=== PATIENT | male | born 1950 | race Caucasian/White ===

== ENCOUNTER 2020-09-27 11:57 | Inpatient (IN) ==
[2020-09-27] MEDS ORDERED: ASPIRIN 325 MG TABLET PO STA (12:38)
[2020-09-27 12:54] LABS: Eosinophils % 0.6 % (0.00-10.9); Hematocrit 25.1 VOL% (42.0-52.0); Hemoglobin 7.2 GM/DL (14.0-18.0); Lymphocytes # 0.3 10*3/uL (1.4-4.0); Mean Corpuscular HGB Conc 28.7 GM/DL (32-36); Mean Platelet Volume 10.6 FL (9.6-12.0); Monocytes % 8.5 % (1.7-12.7); Neutrophils % 73.9 % (38.7-73.9); Platelet Count 57 T/CUMM (130-400); Red Cell Distribution Width 18.2 % (9.3-17.3); White Blood Count 1.8 T/CUMM (4-12)
[2020-09-27 13:09] LABS: Albumin 2.9 G/DL (3.4-5.0); Bilirubin,Total 0.9 MG/DL (0.2-1.0); Calcium 7.9 MG/DL (8.5-10.1); Osmolality,Calculated 283.4 MOS/KG (273-304); Potassium 4.2 MMOL/L (3.5-5.1); Total Protein 6.1 G/DL (6.4-8.2)
[2020-09-27 13:15] LABS: INR 1.1; PT Patient Result 12.4 SECS (9.8-11.9)
[2020-09-27] MEDS ORDERED: DEXTROSE 50% 25 GM/50 ML VIAL IV PRN (15:29)
[2020-09-27] MEDS ORDERED: ONDANSETRON 4 MG/2 ML VIAL IV PRN (15:29)
[2020-09-27] MEDS ORDERED: GLUCAGON 1 MG VIAL IM PRN (15:29)
[2020-09-27] MEDS ORDERED: SODIUM CHLORIDE 0.9% 1,000 ML IV PRN ×2 (16:12→16:13)
[2020-09-27] MEDS ORDERED: FUROSEMIDE 40 MG/4 ML VIAL IV ONE (16:12)
[2020-09-27] MEDS ORDERED: NITROGLYCERIN SL 0.4 MG TABLET SL PRN (16:17)
[2020-09-27] MEDS ORDERED: MORPHINE 4 MG/1 ML VIAL IV PRN (16:17)
[2020-09-27 16:42] LABS: % Iron Saturation 4.2 % (18-50)
[2020-09-27 16:46] LABS: Folate 13.38 NG/ML (5.38-24.0)
[2020-09-27] MEDS: CLOPIDOGREL 75 MG TABLET PO SCH (17:28)
[2020-09-27] MEDS: carvediloL 3.125 MG TABLET PO SCH (17:28)
[2020-09-27] MEDS: INSULIN LISPRO 100 UNIT/ML SUBCUT SCH ×2 (17:35→21:45)
[2020-09-27 19:26] LABS: Lymphocytes 20 % (20-55); Platelet Estimate Decreased; Segmented Neutrophils 75 % (50-85); Total Cells Counted 100
[2020-09-27] MEDS: ROSUVASTATIN 20 MG TABLET PO SCH (21:45)
[2020-09-27] MEDS: PANTOPRAZOLE 40 MG TABLET PO SCH (21:45)
[2020-09-27] MEDS: PARoxetine 10 MG TABLET PO PRN (22:17)
[2020-09-27] MEDS: ACETAMINOPHEN 325 MG TABLET PO PRN (23:10)
[2020-09-27 23:52] LABS: Bilirubin,Urine Negative (Negative); Blood, Urine Small mg/dL (Negative); Glucose,Urine (UA) Negative (Negative); Ketones,Urine Negative (Negative); Mucus,Urine Occasional /LPF (Occasional); Nitrite,Urine Positive (Negative); Protein,Urine 30 MG/DL; RBC,Urine 3 /HPF (0-4); Urine Appearance Slightly Hazy (Clear); Urine Color Yellow (Yellow); Urine Specific Gravity 1.032 (1.001-1.035); Urine Urobilinogen < 2.0 EU/DL (0.2-1.0)
[2020-09-28 06:12] LABS: Eosinophils % 0.7 % (0.00-10.9); Hematocrit 23.9 VOL% (42.0-52.0); Hemoglobin 7.1 GM/DL (14.0-18.0); Lymphocytes # 0.3 10*3/uL (1.4-4.0); Lymphocytes % 21.8 % (21.2-54.2); Mean Corpuscular HGB Conc 29.7 GM/DL (32-36); Mean Platelet Volume 10.3 FL (9.6-12.0); Monocytes % 8.5 % (1.7-12.7); Platelet Count 52 T/CUMM (130-400); Red Blood Count 2.95 MC/CUMM (3.8-5.5); Red Cell Distribution Width 18.1 % (9.3-17.3); White Blood Count 1.4 T/CUMM (4-12)
[2020-09-28 06:25] LABS: Calcium 8.1 MG/DL (8.5-10.1); Osmolality,Calculated 276.7 MOS/KG (273-304)
[2020-09-28 06:38] LABS: Risk Ratio 2.24; Thyroid Stimulating Hormone 0.855 uIU/ml (0.358-3.74); VLDL CHOLESTEROL 11.6 MG/DL
[2020-09-28 06:48] LABS: Hypochromasia 2+; Microcytosis 1+; Platelet Estimate Decreased
[2020-09-28] MEDS ORDERED: PANTOPRAZOLE 40 MG TABLET PO SCH ×2 (09:00)
[2020-09-28] MEDS: INSULIN LISPRO 100 UNIT/ML SUBCUT SCH ×4 (09:20→22:45)
[2020-09-28] MEDS: MEROPENEM 500 MG in SODIUM CHLORIDE 0.9% 100 ML IV SCH ×3 (09:21→22:46)
[2020-09-28] MEDS: carvediloL 3.125 MG TABLET PO SCH ×2 (09:25→16:13)
[2020-09-28] MEDS: ASPIRIN EC 81 MG TABLET PO SCH (09:25)
[2020-09-28] MEDS: CLOPIDOGREL 75 MG TABLET PO SCH (09:25)
[2020-09-28] MEDS: PANTOPRAZOLE 40 MG TABLET PO SCH ×2 (09:25→22:46)
[2020-09-28] MEDS ORDERED: HEPARIN 5,000 UNIT/1 ML VIAL ONE (10:06)
[2020-09-28] MEDS: ISOSORBIDE MONONITRATE 30 MG TABLET PO SCH (10:23)
[2020-09-28 12:43] LABS: Hematocrit 26.6 VOL% (42.0-52.0); Hemoglobin 7.9 GM/DL (14.0-18.0)
[2020-09-28] MEDS ORDERED: SODIUM CHLORIDE 0.9% 1,000 ML IV PRN (17:29)
[2020-09-28] MEDS: ROSUVASTATIN 20 MG TABLET PO SCH (22:45)
[2020-09-29] MEDS: MEROPENEM 500 MG in SODIUM CHLORIDE 0.9% 100 ML IV SCH ×4 (03:58→22:43)
[2020-09-29 05:40] LABS: Eosinophils % 0.6 % (0.00-10.9); Hematocrit 27.4 VOL% (42.0-52.0); Hemoglobin 8.4 GM/DL (14.0-18.0); Lymphocytes # 0.3 10*3/uL (1.4-4.0); Lymphocytes % 20.8 % (21.2-54.2); Mean Corpuscular HGB Conc 30.7 GM/DL (32-36); Mean Corpuscular Volume 79.7 FL (87-102); Mean Platelet Volume 9.9 FL (9.6-12.0); Monocytes % 5.7 % (1.7-12.7); Neutrophils % 72.9 % (38.7-73.9); Platelet Count 51 T/CUMM (130-400); Red Blood Count 3.44 MC/CUMM (3.8-5.5); Red Cell Distribution Width 17.6 % (9.3-17.3); White Blood Count 1.6 T/CUMM (4-12)
[2020-09-29 05:58] LABS: Calcium 7.7 MG/DL (8.5-10.1); Osmolality,Calculated 278.8 MOS/KG (273-304); Potassium 3.9 MMOL/L (3.5-5.1)
[2020-09-29 06:08] LABS: Hypochromasia 1+; Lymphocytes 20 % (20-55); Microcytosis 1+; Platelet Estimate Decreased; Segmented Neutrophils 76 % (50-85); Total Cells Counted 100
[2020-09-29] MEDS: FERROUS SULFATE 325 MG TABLET PO SCH (09:11)
[2020-09-29] MEDS: carvediloL 3.125 MG TABLET PO SCH ×2 (09:11→17:17)
[2020-09-29] MEDS: ASPIRIN EC 81 MG TABLET PO SCH (09:12)
[2020-09-29] MEDS: PANTOPRAZOLE 40 MG TABLET PO SCH ×2 (09:12→22:41)
[2020-09-29] MEDS: CLOPIDOGREL 75 MG TABLET PO SCH (09:12)
[2020-09-29] MEDS: INSULIN LISPRO 100 UNIT/ML SUBCUT SCH ×4 (09:12→22:43)
[2020-09-29] MEDS: ISOSORBIDE MONONITRATE 30 MG TABLET PO SCH (09:12)
[2020-09-29] MEDS: ACETAMINOPHEN 325 MG TABLET PO PRN (17:29)
[2020-09-29 19:06] LABS: Hepatitis B Core IgM Quant 0.08 Index; Hepatitis B Surface Ag Quant < 0.10 Index; Hepatitis B Surface Ag Result Non-Reactive (NonReactive); Hepatitis C Virus Ab Quant 0.17 Index; Hepatitis C Virus Ab Result Non-Reactive (NonReactive)
[2020-09-29] MEDS: ROSUVASTATIN 20 MG TABLET PO SCH (22:40)
[2020-09-30] MEDS: ACETAMINOPHEN 325 MG TABLET PO PRN ×2 (02:17→23:38)
[2020-09-30] MEDS: MEROPENEM 500 MG in SODIUM CHLORIDE 0.9% 100 ML IV SCH ×4 (03:41→21:10)
[2020-09-30 05:53] LABS: Eosinophils % 1.9 % (0.00-10.9); Hematocrit 26.6 VOL% (42.0-52.0); Lymphocytes # 0.3 10*3/uL (1.4-4.0); Lymphocytes % 23.1 % (21.2-54.2); Mean Corpuscular HGB Conc 30.1 GM/DL (32-36); Mean Corpuscular Volume 81.1 FL (87-102); Mean Platelet Volume 11.9 FL (9.6-12.0); Monocytes % 8.3 % (1.7-12.7); Neutrophils % 66.7 % (38.7-73.9); Platelet Count 49 T/CUMM (130-400); Red Blood Count 3.28 MC/CUMM (3.8-5.5); Red Cell Distribution Width 17.5 % (9.3-17.3); White Blood Count 1.1 T/CUMM (4-12)
[2020-09-30 06:05] LABS: Albumin 2.7 G/DL (3.4-5.0); Bilirubin,Total 1.2 MG/DL (0.2-1.0); Osmolality,Calculated 278.7 MOS/KG (273-304); Potassium 3.8 MMOL/L (3.5-5.1); Total Protein 5.8 G/DL (6.4-8.2)
[2020-09-30 06:25] LABS: Eosinophils 3 % (0-10); Hypochromasia 1+; Lymphocytes 17 % (20-55); Microcytosis 1+; Ovalocytes Slight; Platelet Estimate Decreased; Segmented Neutrophils 69 % (50-85); Total Cells Counted 100
[2020-09-30] MEDS: LACTATED RINGERS 1,000 ML IV SCH (07:32)
[2020-09-30] MEDS ORDERED: ETOMIDATE 20 MG/10 ML VIAL IV ONE (09:08)
[2020-09-30] MEDS ORDERED: LIDOCAINE 2% 5 ML VIAL ONE (09:23)
[2020-09-30] MEDS ORDERED: propofoL 200 MG/20 ML VIAL IV ONE (09:23)
[2020-09-30] MEDS: CLOPIDOGREL 75 MG TABLET PO SCH (10:03)
[2020-09-30] MEDS: ASPIRIN EC 81 MG TABLET PO SCH (10:03)
[2020-09-30] MEDS: ISOSORBIDE MONONITRATE 30 MG TABLET PO SCH (10:27)
[2020-09-30] MEDS: carvediloL 3.125 MG TABLET PO SCH ×2 (10:27→16:01)
[2020-09-30] MEDS: PANTOPRAZOLE 40 MG TABLET PO SCH ×2 (10:27→20:56)
[2020-09-30] MEDS: FERROUS SULFATE 325 MG TABLET PO SCH ×3 (10:27→20:57)
[2020-09-30] MEDS: INSULIN LISPRO 100 UNIT/ML SUBCUT SCH ×4 (10:42→20:59)
[2020-09-30] MEDS: ASCORBIC ACID 500 MG TABLET PO SCH ×2 (12:54→20:56)
[2020-09-30] MEDS: ROSUVASTATIN 20 MG TABLET PO SCH (20:56)
[2020-09-30] MEDS: PARoxetine 10 MG TABLET PO PRN (20:57)
[2020-10-01] MEDS: MEROPENEM 500 MG in SODIUM CHLORIDE 0.9% 100 ML IV SCH ×2 (03:40→10:17)
[2020-10-01 05:41] LABS: Eosinophils % 2.1 % (0.00-10.9); Hematocrit 28.4 VOL% (42.0-52.0); Hemoglobin 8.5 GM/DL (14.0-18.0); Immature Granulocytes % 1.1 %; Immature Granulocytes Absolute 0.01 #; Lymphocytes # 0.3 10*3/uL (1.4-4.0); Lymphocytes % 29.5 % (21.2-54.2); Mean Corpuscular HGB Conc 29.9 GM/DL (32-36); Mean Corpuscular Volume 81.6 FL (87-102); Mean Platelet Volume 10.9 FL (9.6-12.0); Monocytes % 12.6 % (1.7-12.7); Neutrophils % 54.7 % (38.7-73.9); Red Blood Count 3.48 MC/CUMM (3.8-5.5); Red Cell Distribution Width 17.6 % (9.3-17.3)
[2020-10-01 05:42] LABS: Platelet Count 50 T/CUMM (130-400)
[2020-10-01 06:05] LABS: Albumin 2.7 G/DL (3.4-5.0); Bilirubin,Total 0.7 MG/DL (0.2-1.0); Calcium 8.2 MG/DL (8.5-10.1); Osmolality,Calculated 277.8 MOS/KG (273-304); Potassium 3.9 MMOL/L (3.5-5.1); Total Protein 6.1 G/DL (6.4-8.2)
[2020-10-01 06:11] LABS: Anisocytosis 1+; Band Neutrophils 2 % (0-10); Eosinophils 3 % (0-10); Lymphocytes 30 % (20-55); Macrocytosis 1+; Platelet Estimate Decreased; Segmented Neutrophils 58 % (50-85); Total Cells Counted 100
[2020-10-01] MEDS: LACTATED RINGERS 1,000 ML IV SCH (08:04)
[2020-10-01] MEDS ORDERED: PROPRANOLOL 10 MG TABLET PO SCH (09:00)
[2020-10-01] MEDS ORDERED: COLESTIPOL 1 GM TABLET PO SCH (09:00)
[2020-10-01] MEDS: ISOSORBIDE MONONITRATE 30 MG TABLET PO SCH (09:10)
[2020-10-01] MEDS: FERROUS SULFATE 325 MG TABLET PO SCH (09:10)
[2020-10-01] MEDS: PANTOPRAZOLE 40 MG TABLET PO SCH (09:11)
[2020-10-01] MEDS: ASPIRIN EC 81 MG TABLET PO SCH (09:11)
[2020-10-01] MEDS: ASCORBIC ACID 500 MG TABLET PO SCH (09:11)
[2020-10-01] MEDS: CLOPIDOGREL 75 MG TABLET PO SCH (09:11)
[2020-10-01] MEDS: INSULIN LISPRO 100 UNIT/ML SUBCUT SCH ×2 (10:18→12:00)
[2020-10-01 11:27] VITALS: BP 121/68
== END 2020-10-01 15:05 | disposition home or self-care (01) | DRG 808 ==
LOC: N.ED 11:57 → N.EDINP 11:57 → N.TELES 16:32
PROVIDERS: ADMIT Internal Medicine; ATTEND Internal Medicine

== ENCOUNTER 2020-10-07 08:11 | Inpatient (IN) ==
[2020-10-07] MEDS ORDERED: ALBUTEROL/IPRATROPIUM 3 ML NEB RESP TX STA (08:41)
[2020-10-07] MEDS ORDERED: KETOROLAC 30 MG/1 ML VIAL IV STA (08:42)
[2020-10-07 08:59] LABS: Hematocrit 30.5 VOL% (42.0-52.0); Immature Granulocytes % 0.5 %; Immature Granulocytes Absolute 0.01 #; Lymphocytes # 0.4 10*3/uL (1.4-4.0); Lymphocytes % 18.7 % (21.2-54.2); Mean Corpuscular HGB Conc 29.5 GM/DL (32-36); Monocytes % 11.4 % (1.7-12.7); Neutrophils % 69.4 % (38.7-73.9); Red Blood Count 3.63 MC/CUMM (3.8-5.5); Red Cell Distribution Width 21.5 % (9.3-17.3); White Blood Count 1.9 T/CUMM (4-12)
[2020-10-07 09:01] LABS: INR 1.2
[2020-10-07 09:02] LABS: Albumin 2.7 G/DL (3.4-5.0); Bilirubin,Total 4.6 MG/DL (0.2-1.0); Calcium 8.1 MG/DL (8.5-10.1); Potassium 4.4 MMOL/L (3.5-5.1); Total Protein 6.1 G/DL (6.4-8.2)
[2020-10-07 09:05] LABS: Platelet Count 30 T/CUMM (130-400)
[2020-10-07 09:39] LABS: Band Neutrophils 1 % (0-10); Hypochromasia 1+; Lymphocytes 18 % (20-55); Microcytosis 1+; Platelet Estimate Decreased; Segmented Neutrophils 73 % (50-85); Total Cells Counted 100
[2020-10-07 10:39] LABS: Bilirubin,Urine Negative (Negative); Blood, Urine Large mg/dL (Negative); Glucose,Urine (UA) 50 mg/dL (Negative); Ketones,Urine Negative (Negative); Nitrite,Urine Negative (Negative); Protein,Urine 100 MG/DL; Urine Appearance CLEAR (Clear); Urine Color Amber (Yellow); Urine Specific Gravity 1.038 (1.001-1.035); Urine Urobilinogen < 2.0 EU/DL (0.2-1.0)
[2020-10-07] MEDS ORDERED: ACETAMINOPHEN 325 MG TABLET PO PRN (10:44)
[2020-10-07] MEDS ORDERED: GLUCAGON 1 MG VIAL IM PRN (10:44)
[2020-10-07] MEDS ORDERED: DEXTROSE 50% 25 GM/50 ML VIAL IV PRN ×2 (10:44)
[2020-10-07] MEDS: SODIUM CHLORIDE 0.9% 1,000 ML IV SCH ×2 (11:46→20:20)
[2020-10-07] MEDS: cefTRIAXone 1,000 MG in SODIUM CHLORIDE 0.9% 100 ML IV SCH (11:53)
[2020-10-07] MEDS: INSULIN REGULAR 100 UNIT/ML SUBCUT SCH ×3 (11:53→20:48)
[2020-10-07] MEDS: DEXAMETHASONE 4 MG/1 ML VIAL IV SCH (11:57)
[2020-10-07] MEDS ORDERED: LOPERAMIDE 2 MG CAPSULE PO PRN (12:39)
[2020-10-07] MEDS ORDERED: NITROGLYCERIN SL 0.4 MG TABLET SL PRN (12:39)
[2020-10-07] MEDS: AZITHROMYCIN INJ 500 MG in SODIUM CHLORIDE 0.9% 250 ML IV SCH (13:21)
[2020-10-07] MEDS: ALBUTEROL/IPRATROPIUM 3 ML NEB RESP TX SCH ×2 (14:15→20:15)
[2020-10-07] MEDS ORDERED: REMDESIVIR 200 MG in SODIUM CHLORIDE 0.9% 210 ML IV ONE (15:00)
[2020-10-07] MEDS ORDERED: SODIUM CHLORIDE 0.9% 1,000 ML IV ONE (15:33)
[2020-10-07] MEDS: PROPRANOLOL 10 MG TABLET PO SCH ×2 (17:05→20:49)
[2020-10-07] MEDS: FERROUS SULFATE 325 MG TABLET PO SCH (20:48)
[2020-10-07] MEDS: PARoxetine 10 MG TABLET PO SCH (20:48)
[2020-10-07] MEDS: FAMOTIDINE 20 MG TABLET PO SCH (20:48)
[2020-10-07] MEDS: ROSUVASTATIN 20 MG TABLET PO SCH (20:48)
[2020-10-07] MEDS: ASCORBIC ACID 500 MG TABLET PO SCH (20:48)
[2020-10-07] MEDS: GABAPENTIN 100 MG CAPSULE PO SCH (20:48)
[2020-10-08] MEDS: ALBUTEROL/IPRATROPIUM 3 ML NEB RESP TX SCH ×4 (02:43→18:22)
[2020-10-08 03:33] LABS: Hematocrit 25.9 VOL% (42.0-52.0); Hemoglobin 7.7 GM/DL (14.0-18.0); Lymphocytes # 0.2 10*3/uL (1.4-4.0); Lymphocytes % 21.3 % (21.2-54.2); Mean Corpuscular HGB Conc 29.7 GM/DL (32-36); Monocytes % 10.2 % (1.7-12.7); Neutrophils % 68.5 % (38.7-73.9); Red Blood Count 3.16 MC/CUMM (3.8-5.5); Red Cell Distribution Width 21.7 % (9.3-17.3); White Blood Count 1.1 T/CUMM (4-12)
[2020-10-08 03:53] LABS: Hypochromasia 1+; Platelet Estimate Decreased
[2020-10-08 03:54] LABS: Microcytosis 1+; Ovalocytes 2+
[2020-10-08 04:01] LABS: Alanine Aminotransferase 21 U/L (16-61); Alkaline Phosphatase 119 U/L (45-117); Aspartate Amino Transferase 59 U/L (0-37); Blood Urea Nitrogen 42 MG/DL (7-18); Calcium 7.8 MG/DL (8.5-10.1); Carbon Dioxide 24 MMOL/L (21-32); Estimated Glom Filtration Rate 83 ML/MIN; Glucose 179 MG/DL (74-106); HDL Cholesterol 10 MG/DL (40-60); Osmolality,Calculated 295.3 MOS/KG (273-304); Sodium 141 MMOL/L (136-145); Total Protein 5.5 G/DL (6.4-8.2); Triglycerides 124 MG/DL (2-150); VLDL CHOLESTEROL 24.8 MG/DL
[2020-10-08 04:09] LABS: Ferritin 567.9 ng/ml (26-388)
[2020-10-08] MEDS: SODIUM CHLORIDE 0.9% 1,000 ML IV SCH ×2 (05:12→16:14)
[2020-10-08] MEDS: ASCORBIC ACID 500 MG TABLET PO SCH ×2 (08:37→20:18)
[2020-10-08] MEDS: FAMOTIDINE 20 MG TABLET PO SCH ×2 (08:38→20:19)
[2020-10-08] MEDS: ZINC SULFATE 220 MG CAPSULE PO SCH (08:38)
[2020-10-08] MEDS: DEXAMETHASONE 4 MG/1 ML VIAL IV SCH (08:38)
[2020-10-08] MEDS: ISOSORBIDE MONONITRATE 30 MG TABLET PO SCH (08:38)
[2020-10-08] MEDS: GABAPENTIN 100 MG CAPSULE PO SCH ×2 (08:38→20:19)
[2020-10-08] MEDS: CHOLECALCIFEROL 1,000 UNIT TABLET PO SCH (08:38)
[2020-10-08] MEDS: FERROUS SULFATE 325 MG TABLET PO SCH ×2 (08:38→20:18)
[2020-10-08] MEDS: INSULIN REGULAR 100 UNIT/ML SUBCUT SCH ×4 (08:39→20:22)
[2020-10-08] MEDS ORDERED: PANTOPRAZOLE 40 MG TABLET PO SCH (09:00)
[2020-10-08] MEDS ORDERED: DEXAMETHASONE INJ 10 MG in SODIUM CHLORIDE 0.9% 50 ML IV SCH (09:00)
[2020-10-08] MEDS: PROPRANOLOL 10 MG TABLET PO SCH (10:07)
[2020-10-08] MEDS: REMDESIVIR 100 MG in SODIUM CHLORIDE 0.9% 100 ML IV SCH (10:07)
[2020-10-08] MEDS: ASPIRIN CHEW 81 MG TABLET PO SCH (10:08)
[2020-10-08] MEDS: CLOPIDOGREL 75 MG TABLET PO SCH (10:08)
[2020-10-08] MEDS ORDERED: SODIUM CHLORIDE 0.9% 1,000 ML IV PRN ×2 (12:12→15:15)
[2020-10-08] MEDS: cefTRIAXone 1,000 MG in SODIUM CHLORIDE 0.9% 100 ML IV SCH (12:31)
[2020-10-08] MEDS: AZITHROMYCIN INJ 500 MG in SODIUM CHLORIDE 0.9% 250 ML IV SCH (13:15)
[2020-10-08] MEDS: ROSUVASTATIN 20 MG TABLET PO SCH (20:18)
[2020-10-08] MEDS: PARoxetine 10 MG TABLET PO SCH (20:19)
[2020-10-08] MEDS ORDERED: ZALEPLON 5 MG CAPSULE PO PRN (21:15)
[2020-10-09] MEDS: SODIUM CHLORIDE 0.9% 1,000 ML IV SCH ×4 (00:37→19:51)
[2020-10-09] MEDS: ALBUTEROL/IPRATROPIUM 3 ML NEB RESP TX SCH ×4 (06:05→20:00)
[2020-10-09 06:26] LABS: Hemoglobin 6.9 GM/DL (14.0-18.0); Immature Granulocytes Absolute 0.01 #; Lymphocytes # 0.2 10*3/uL (1.4-4.0); Lymphocytes % 18.6 % (21.2-54.2); Mean Corpuscular HGB Conc 31.4 GM/DL (32-36); Mean Corpuscular Volume 81.2 FL (87-102); Monocytes % 4.1 % (1.7-12.7); Neutrophils % 76.3 % (38.7-73.9); Red Blood Count 2.71 MC/CUMM (3.8-5.5); Red Cell Distribution Width 22.1 % (9.3-17.3)
[2020-10-09 06:30] LABS: Platelet Count 29 T/CUMM (130-400)
[2020-10-09 06:39] LABS: Albumin 2.1 G/DL (3.4-5.0); Bilirubin,Total 1.6 MG/DL (0.2-1.0); Calcium 7.7 MG/DL (8.5-10.1); Osmolality,Calculated 301.3 MOS/KG (273-304); Potassium 4.3 MMOL/L (3.5-5.1); Total Protein 5.2 G/DL (6.4-8.2)
[2020-10-09 06:40] LABS: Ferritin 378.3 ng/ml (26-388)
[2020-10-09 07:04] LABS: Anisocytosis 1+; Band Neutrophils 3 % (0-10); Hypochromasia 1+; Lymphocytes 20 % (20-55); Microcytosis 1+; Segmented Neutrophils 72 % (50-85); Total Cells Counted 100
[2020-10-09 07:05] LABS: Ovalocytes Slight; Platelet Estimate Decreased
[2020-10-09] MEDS: DEXAMETHASONE 4 MG/1 ML VIAL IV SCH (08:45)
[2020-10-09] MEDS: INSULIN REGULAR 100 UNIT/ML SUBCUT SCH ×4 (08:48→21:04)
[2020-10-09] MEDS: FERROUS SULFATE 325 MG TABLET PO SCH ×2 (08:49→20:47)
[2020-10-09] MEDS: ASCORBIC ACID 500 MG TABLET PO SCH ×2 (08:50→20:47)
[2020-10-09] MEDS: GABAPENTIN 100 MG CAPSULE PO SCH ×2 (08:50→20:48)
[2020-10-09] MEDS: FAMOTIDINE 20 MG TABLET PO SCH ×2 (08:50→20:48)
[2020-10-09] MEDS: ISOSORBIDE MONONITRATE 30 MG TABLET PO SCH (08:50)
[2020-10-09] MEDS: CHOLECALCIFEROL 1,000 UNIT TABLET PO SCH (08:51)
[2020-10-09] MEDS: ZINC SULFATE 220 MG CAPSULE PO SCH (08:51)
[2020-10-09 09:52] LABS: Platelet Count 27 T/CUMM (130-400)
[2020-10-09] MEDS: REMDESIVIR 100 MG in SODIUM CHLORIDE 0.9% 100 ML IV SCH (09:59)
[2020-10-09] MEDS: CLOPIDOGREL 75 MG TABLET PO SCH (10:32)
[2020-10-09] MEDS: ASPIRIN CHEW 81 MG TABLET PO SCH (10:32)
[2020-10-09] MEDS: cefTRIAXone 1,000 MG in SODIUM CHLORIDE 0.9% 100 ML IV SCH (11:11)
[2020-10-09] MEDS: AZITHROMYCIN INJ 500 MG in SODIUM CHLORIDE 0.9% 250 ML IV SCH (11:37)
[2020-10-09] MEDS: POLYETHYLENE GLYCOL POWDER 17 GM PACK PO SCH ×2 (13:25→20:51)
[2020-10-09] MEDS: PROPRANOLOL 10 MG TABLET PO SCH ×2 (16:00→20:50)
[2020-10-09] MEDS: ROSUVASTATIN 20 MG TABLET PO SCH (20:47)
[2020-10-09] MEDS: PARoxetine 10 MG TABLET PO SCH (20:49)
[2020-10-10] MEDS: ALBUTEROL/IPRATROPIUM 3 ML NEB RESP TX SCH ×4 (00:33→19:20)
[2020-10-10] MEDS: SODIUM CHLORIDE 0.9% 1,000 ML IV SCH ×5 (03:26→16:12)
[2020-10-10 06:05] LABS: Hematocrit 21.9 VOL% (42.0-52.0); Hemoglobin 6.6 GM/DL (14.0-18.0); Immature Granulocytes Absolute 0.01 #; Lymphocytes # 0.1 10*3/uL (1.4-4.0); Lymphocytes % 14.6 % (21.2-54.2); Mean Corpuscular HGB Conc 30.1 GM/DL (32-36); Monocytes % 6.3 % (1.7-12.7); Neutrophils % 78.1 % (38.7-73.9); Platelet Count 40 T/CUMM (130-400); Red Blood Count 2.67 MC/CUMM (3.8-5.5); Red Cell Distribution Width 22.5 % (9.3-17.3)
[2020-10-10 06:24] LABS: Albumin 2.2 G/DL (3.4-5.0); Bilirubin,Total 0.8 MG/DL (0.2-1.0); Calcium 7.9 MG/DL (8.5-10.1); Potassium 4.3 MMOL/L (3.5-5.1); Total Protein 5.3 G/DL (6.4-8.2)
[2020-10-10 06:26] LABS: Ferritin 313.1 ng/ml (26-388)
[2020-10-10 07:49] LABS: Acanthocytes Few; Anisocytosis 2+; Band Neutrophils 12 % (0-10); Lymphocytes 12 % (20-55); Ovalocytes Few; Platelet Estimate Decreased; Poikilocytosis Slight; Segmented Neutrophils 68 % (50-85); Total Cells Counted 100
[2020-10-10 07:50] LABS: Hypochromasia Slight
[2020-10-10] MEDS: INSULIN REGULAR 100 UNIT/ML SUBCUT SCH ×4 (08:19→21:01)
[2020-10-10] MEDS: ISOSORBIDE MONONITRATE 30 MG TABLET PO SCH (08:20)
[2020-10-10] MEDS: ASPIRIN CHEW 81 MG TABLET PO SCH (08:20)
[2020-10-10] MEDS: FERROUS SULFATE 325 MG TABLET PO SCH ×2 (08:20→21:00)
[2020-10-10] MEDS: DEXAMETHASONE 4 MG/1 ML VIAL IV SCH (08:20)
[2020-10-10] MEDS: CLOPIDOGREL 75 MG TABLET PO SCH (08:21)
[2020-10-10] MEDS: FAMOTIDINE 20 MG TABLET PO SCH ×2 (08:21→21:00)
[2020-10-10] MEDS: PROPRANOLOL 10 MG TABLET PO SCH ×3 (08:21→21:01)
[2020-10-10] MEDS: GABAPENTIN 100 MG CAPSULE PO SCH ×2 (08:21→21:00)
[2020-10-10] MEDS: ASCORBIC ACID 500 MG TABLET PO SCH ×2 (08:22→21:05)
[2020-10-10] MEDS: CHOLECALCIFEROL 1,000 UNIT TABLET PO SCH (08:22)
[2020-10-10] MEDS: ZINC SULFATE 220 MG CAPSULE PO SCH (08:22)
[2020-10-10] MEDS: POLYETHYLENE GLYCOL POWDER 17 GM PACK PO SCH ×2 (08:57→21:00)
[2020-10-10] MEDS: REMDESIVIR 100 MG in SODIUM CHLORIDE 0.9% 100 ML IV SCH (09:40)
[2020-10-10] MEDS: cefTRIAXone 1,000 MG in SODIUM CHLORIDE 0.9% 100 ML IV SCH (11:08)
[2020-10-10] MEDS: AZITHROMYCIN INJ 500 MG in SODIUM CHLORIDE 0.9% 250 ML IV SCH (11:39)
[2020-10-10] MEDS: PARoxetine 10 MG TABLET PO SCH (21:00)
[2020-10-10] MEDS: ROSUVASTATIN 20 MG TABLET PO SCH (21:00)
[2020-10-11] MEDS: SODIUM CHLORIDE 0.9% 1,000 ML IV SCH ×4 (00:04→18:12)
[2020-10-11] MEDS: ALBUTEROL/IPRATROPIUM 3 ML NEB RESP TX SCH ×4 (01:10→19:00)
[2020-10-11 04:53] LABS: Hematocrit 22.3 VOL% (42.0-52.0); Hemoglobin 6.7 GM/DL (14.0-18.0); Immature Granulocytes % 1.1 %; Immature Granulocytes Absolute 0.01 #; Lymphocytes # 0.2 10*3/uL (1.4-4.0); Lymphocytes % 21.1 % (21.2-54.2); Mean Corpuscular Volume 82.9 FL (87-102); Monocytes % 7.4 % (1.7-12.7); Neutrophils % 70.4 % (38.7-73.9); Platelet Count 44 T/CUMM (130-400); Red Blood Count 2.69 MC/CUMM (3.8-5.5); Red Cell Distribution Width 23.1 % (9.3-17.3)
[2020-10-11 05:30] LABS: Albumin 2.1 G/DL (3.4-5.0); Bilirubin,Total 0.6 MG/DL (0.2-1.0); Calcium 7.7 MG/DL (8.5-10.1); Potassium 4.2 MMOL/L (3.5-5.1); Total Protein 5.1 G/DL (6.4-8.2)
[2020-10-11 05:32] LABS: Ferritin 253.4 ng/ml (26-388)
[2020-10-11 09:07] LABS: Band Neutrophils 4 % (0-10); Lymphocytes 16 % (20-55); Platelet Estimate Decreased; Segmented Neutrophils 76 % (50-85); Total Cells Counted 100
[2020-10-11 09:08] LABS: Anisocytosis 1+; Burr Cells Few; Macrocytosis Slight; Ovalocytes Few; Tear Drop Cells Few
[2020-10-11] MEDS: ZINC SULFATE 220 MG CAPSULE PO SCH (09:36)
[2020-10-11] MEDS: GABAPENTIN 100 MG CAPSULE PO SCH ×2 (09:36→20:41)
[2020-10-11] MEDS: FAMOTIDINE 20 MG TABLET PO SCH ×2 (09:37→20:41)
[2020-10-11] MEDS: ASPIRIN CHEW 81 MG TABLET PO SCH (09:37)
[2020-10-11] MEDS: PROPRANOLOL 10 MG TABLET PO SCH ×3 (09:37→21:27)
[2020-10-11] MEDS: CHOLECALCIFEROL 1,000 UNIT TABLET PO SCH (09:37)
[2020-10-11] MEDS: ISOSORBIDE MONONITRATE 30 MG TABLET PO SCH (09:37)
[2020-10-11] MEDS: FERROUS SULFATE 325 MG TABLET PO SCH ×2 (09:37→20:42)
[2020-10-11] MEDS: ASCORBIC ACID 500 MG TABLET PO SCH ×2 (09:37→20:41)
[2020-10-11] MEDS: POLYETHYLENE GLYCOL POWDER 17 GM PACK PO SCH ×2 (09:40→21:23)
[2020-10-11] MEDS: DEXAMETHASONE 4 MG/1 ML VIAL IV SCH (09:40)
[2020-10-11] MEDS: REMDESIVIR 100 MG in SODIUM CHLORIDE 0.9% 100 ML IV SCH (09:42)
[2020-10-11] MEDS: CLOPIDOGREL 75 MG TABLET PO SCH (09:47)
[2020-10-11] MEDS: INSULIN REGULAR 100 UNIT/ML SUBCUT SCH ×4 (11:21→20:42)
[2020-10-11] MEDS: cefTRIAXone 1,000 MG in SODIUM CHLORIDE 0.9% 100 ML IV SCH (11:21)
[2020-10-11] MEDS: AZITHROMYCIN INJ 500 MG in SODIUM CHLORIDE 0.9% 250 ML IV SCH (11:45)
[2020-10-11 19:06] LABS: Specimen Source THROAT
[2020-10-11] MEDS: PARoxetine 10 MG TABLET PO SCH (20:41)
[2020-10-11] MEDS: ROSUVASTATIN 20 MG TABLET PO SCH (20:41)
[2020-10-12] MEDS: ALBUTEROL/IPRATROPIUM 3 ML NEB RESP TX SCH (01:00)
[2020-10-12] MEDS: SODIUM CHLORIDE 0.9% 1,000 ML IV SCH ×4 (03:26→21:52)
[2020-10-12 05:23] LABS: Hematocrit 25.4 VOL% (42.0-52.0); Hemoglobin 7.5 GM/DL (14.0-18.0); Immature Granulocytes % 0.9 %; Immature Granulocytes Absolute 0.01 #; Lymphocytes # 0.2 10*3/uL (1.4-4.0); Lymphocytes % 20.9 % (21.2-54.2); Mean Corpuscular HGB Conc 29.5 GM/DL (32-36); Mean Corpuscular Volume 84.7 FL (87-102); Monocytes % 11.3 % (1.7-12.7); Neutrophils % 66.9 % (38.7-73.9); Platelet Count 56 T/CUMM (130-400); White Blood Count 1.2 T/CUMM (4-12)
[2020-10-12 05:40] LABS: Hypochromasia 2+; Microcytosis Slight; Platelet Estimate Decreased
[2020-10-12 05:47] LABS: Calcium 7.5 MG/DL (8.5-10.1); Osmolality,Calculated 295.8 MOS/KG (273-304); Potassium 4.3 MMOL/L (3.5-5.1)
[2020-10-12 05:58] LABS: Ferritin 227.9 ng/ml (26-388)
[2020-10-12] MEDS ORDERED: PRAMOXINE/HYDROCORTISONE RECTAL FOAM 10 GM CAN TOP PRN (06:32)
[2020-10-12] MEDS: ALBUTEROL INHALER 18 GM INH SCH ×3 (07:57→18:00)
[2020-10-12] MEDS: ASPIRIN CHEW 81 MG TABLET PO SCH (08:24)
[2020-10-12] MEDS: FERROUS SULFATE 325 MG TABLET PO SCH ×2 (08:24→21:41)
[2020-10-12] MEDS: FAMOTIDINE 20 MG TABLET PO SCH ×2 (08:24→21:39)
[2020-10-12] MEDS: CHOLECALCIFEROL 1,000 UNIT TABLET PO SCH (08:24)
[2020-10-12] MEDS: ISOSORBIDE MONONITRATE 30 MG TABLET PO SCH (08:24)
[2020-10-12] MEDS: GABAPENTIN 100 MG CAPSULE PO SCH ×2 (08:24→21:40)
[2020-10-12] MEDS: ASCORBIC ACID 500 MG TABLET PO SCH ×2 (08:24→21:40)
[2020-10-12] MEDS: CLOPIDOGREL 75 MG TABLET PO SCH (08:24)
[2020-10-12] MEDS: ZINC SULFATE 220 MG CAPSULE PO SCH (08:25)
[2020-10-12] MEDS: INSULIN REGULAR 100 UNIT/ML SUBCUT SCH ×4 (08:25→21:42)
[2020-10-12] MEDS: POLYETHYLENE GLYCOL POWDER 17 GM PACK PO SCH ×2 (08:25→21:51)
[2020-10-12] MEDS: DEXAMETHASONE 4 MG/1 ML VIAL IV SCH (08:25)
[2020-10-12] MEDS ORDERED: PROPRANOLOL 10 MG TABLET PO SCH (09:00)
[2020-10-12] MEDS: AZITHROMYCIN INJ 500 MG in SODIUM CHLORIDE 0.9% 250 ML IV SCH (10:47)
[2020-10-12] MEDS: cefTRIAXone 1,000 MG in SODIUM CHLORIDE 0.9% 100 ML IV SCH (11:27)
[2020-10-12] MEDS: PARoxetine 10 MG TABLET PO SCH (21:39)
[2020-10-12] MEDS: ROSUVASTATIN 20 MG TABLET PO SCH (21:41)
[2020-10-12] MEDS: carvediloL 3.125 MG TABLET PO SCH (21:42)
[2020-10-13] MEDS: ONDANSETRON 4 MG/2 ML VIAL IV PRN ×2 (00:57→13:58)
[2020-10-13] MEDS: ALBUTEROL INHALER 18 GM INH SCH ×4 (01:07→20:40)
[2020-10-13] MEDS: SODIUM CHLORIDE 0.9% 1,000 ML IV SCH ×3 (01:10→20:41)
[2020-10-13 05:52] LABS: Eosinophils % 0.8 % (0.00-10.9); Hematocrit 26.4 VOL% (42.0-52.0); Hemoglobin 7.9 GM/DL (14.0-18.0); Immature Granulocytes % 1.1 %; Immature Granulocytes Absolute 0.03 #; Lymphocytes # 0.3 10*3/uL (1.4-4.0); Lymphocytes % 11.9 % (21.2-54.2); Mean Corpuscular HGB Conc 29.9 GM/DL (32-36); Mean Corpuscular Volume 84.6 FL (87-102); Mean Platelet Volume 11.2 FL (9.6-12.0); Monocytes % 8.8 % (1.7-12.7); Neutrophils % 77.4 % (38.7-73.9); Platelet Count 74 T/CUMM (130-400); Red Blood Count 3.12 MC/CUMM (3.8-5.5); White Blood Count 2.6 T/CUMM (4-12)
[2020-10-13 06:09] LABS: Calcium 7.7 MG/DL (8.5-10.1); Potassium 4.2 MMOL/L (3.5-5.1)
[2020-10-13 06:12] LABS: Ferritin 174.2 ng/ml (26-388)
[2020-10-13 06:14] LABS: Hypochromasia 1+; Microcytosis 1+; Platelet Estimate Decreased
[2020-10-13] MEDS: INSULIN REGULAR 100 UNIT/ML SUBCUT SCH ×4 (08:45→23:55)
[2020-10-13] MEDS: ASCORBIC ACID 500 MG TABLET PO SCH ×2 (08:46→20:40)
[2020-10-13] MEDS: carvediloL 3.125 MG TABLET PO SCH ×2 (08:46→20:40)
[2020-10-13] MEDS: FAMOTIDINE 20 MG TABLET PO SCH (08:46)
[2020-10-13] MEDS: FERROUS SULFATE 325 MG TABLET PO SCH ×2 (08:46→20:40)
[2020-10-13] MEDS: DEXAMETHASONE 4 MG/1 ML VIAL IV SCH (08:46)
[2020-10-13] MEDS: ZINC SULFATE 220 MG CAPSULE PO SCH (08:46)
[2020-10-13] MEDS: GABAPENTIN 100 MG CAPSULE PO SCH ×2 (08:46→20:40)
[2020-10-13] MEDS: ISOSORBIDE MONONITRATE 30 MG TABLET PO SCH (08:46)
[2020-10-13] MEDS: ASPIRIN CHEW 81 MG TABLET PO SCH (08:46)
[2020-10-13] MEDS: CLOPIDOGREL 75 MG TABLET PO SCH (08:46)
[2020-10-13] MEDS: CHOLECALCIFEROL 1,000 UNIT TABLET PO SCH (08:46)
[2020-10-13] MEDS: POLYETHYLENE GLYCOL POWDER 17 GM PACK PO SCH ×2 (10:11→20:40)
[2020-10-13] MEDS: cefTRIAXone 1,000 MG in SODIUM CHLORIDE 0.9% 100 ML IV SCH (12:46)
[2020-10-13 13:55] LABS: Hematocrit 26.8 VOL% (42.0-52.0)
[2020-10-13] MEDS: OCTREOTIDE 500 MCG in SODIUM CHLORIDE 0.9% 100 ML IV SCH ×2 (13:58→23:16)
[2020-10-13] MEDS ORDERED: VECURONIUM 10 MG VIAL IV ONE (17:16)
[2020-10-13] MEDS ORDERED: ETOMIDATE 40 MG/20 ML VIAL IV ONE (17:16)
[2020-10-13] MEDS ORDERED: SUCCINYLCHOLINE 200 MG/10 ML VIAL ONE (17:16)
[2020-10-13] MEDS ORDERED: ePHEDrine 50 MG/ML VIAL ONE (17:17)
[2020-10-13] MEDS ORDERED: PHENYLEPHRINE 1 MG/10 ML SYRINGE IV ONE (17:17)
[2020-10-13] MEDS ORDERED: PHENYLEPHRINE DRIP 40 MG/250 ML PREMIX IV ONE (17:37)
[2020-10-13 17:46] LABS: Hematocrit 22.4 VOL% (42.0-52.0); Hemoglobin 6.6 GM/DL (14.0-18.0)
[2020-10-13] MEDS ORDERED: MIDAZOLAM 2 MG/2 ML VIAL ONE (18:09)
[2020-10-13] MEDS ORDERED: MIDAZOLAM 2 MG/2 ML VIAL IV ONE (18:22)
[2020-10-13] MEDS ORDERED: PHENYLEPHRINE DRIP 40 MG/250 ML PREMIX IV PRN (18:23)
[2020-10-13] MEDS: ROSUVASTATIN 20 MG TABLET PO SCH (20:40)
[2020-10-13] MEDS: PARoxetine 10 MG TABLET PO SCH (20:40)
[2020-10-13] MEDS: FAMOTIDINE 20 MG/2 ML VIAL IV SCH (22:21)
[2020-10-14] MEDS: ALBUTEROL INHALER 18 GM INH SCH ×4 (00:48→20:05)
[2020-10-14 01:12] LABS: Hematocrit 23.2 VOL% (42.0-52.0); Hemoglobin 6.8 GM/DL (14.0-18.0)
[2020-10-14] MEDS: SODIUM CHLORIDE 0.9% 1,000 ML IV SCH ×5 (02:16→21:55)
[2020-10-14 03:54] LABS: ABG Base Excess -6.4 MMOL/L (-2.5-2.5); ABG HCO3 17.2 MMOL/L (20-26); ABG Oxygen Saturation 99.4 % (95-100); ABG PCO2 26.3 MM HG (35-48); ABG PH 7.433 (7.35-7.45); ABG PO2 447.2 MM HG (80-95); Allen Test Positive; Pt O2 Delivery Device Ventilator
[2020-10-14] MEDS ORDERED: METOPROLOL TARTRATE 5 MG/5 ML VIAL IV ONE ×3 (05:32→18:08)
[2020-10-14 06:03] LABS: Basophils % 0.1 % (0.0-0.8); Eosinophils % 0.1 % (0.00-10.9); Hematocrit 22.3 VOL% (42.0-52.0); Hemoglobin 6.5 GM/DL (14.0-18.0); Immature Granulocytes % 2.2 %; Immature Granulocytes Absolute 0.31 #; Lymphocytes # 1.6 10*3/uL (1.4-4.0); Lymphocytes % 11.6 % (21.2-54.2); Mean Corpuscular HGB Conc 29.1 GM/DL (32-36); Mean Corpuscular Volume 87.5 FL (87-102); Mean Platelet Volume 10.8 FL (9.6-12.0); Monocytes % 10.5 % (1.7-12.7); NRBC # 0.11 10*3/uL; Neutrophils % 75.5 % (38.7-73.9); Platelet Count 225 T/CUMM (130-400); Red Blood Count 2.55 MC/CUMM (3.8-5.5); Red Cell Distribution Width 27.6 % (9.3-17.3); White Blood Count 13.8 T/CUMM (4-12)
[2020-10-14 06:18] LABS: Calcium 7.3 MG/DL (8.5-10.1); Osmolality,Calculated 306.7 MOS/KG (273-304); Potassium 4.5 MMOL/L (3.5-5.1)
[2020-10-14] MEDS: INSULIN REGULAR 100 UNIT/ML SUBCUT SCH ×3 (09:26→17:32)
[2020-10-14] MEDS: OCTREOTIDE 500 MCG in SODIUM CHLORIDE 0.9% 100 ML IV SCH ×3 (09:26→19:26)
[2020-10-14] MEDS: FAMOTIDINE 20 MG/2 ML VIAL IV SCH ×2 (09:27→20:53)
[2020-10-14] MEDS: ISOSORBIDE MONONITRATE 30 MG TABLET PO SCH (09:27)
[2020-10-14] MEDS: POLYETHYLENE GLYCOL POWDER 17 GM PACK PO SCH ×2 (09:27→21:08)
[2020-10-14] MEDS: GABAPENTIN 100 MG CAPSULE PO SCH ×2 (09:27→21:08)
[2020-10-14] MEDS: ASPIRIN CHEW 81 MG TABLET PO SCH (09:28)
[2020-10-14] MEDS: carvediloL 3.125 MG TABLET PO SCH (09:28)
[2020-10-14] MEDS: FERROUS SULFATE 325 MG TABLET PO SCH ×2 (09:28→21:08)
[2020-10-14] MEDS: DEXAMETHASONE 4 MG/1 ML VIAL IV SCH (09:28)
[2020-10-14] MEDS: CHOLECALCIFEROL 1,000 UNIT TABLET PO SCH (09:29)
[2020-10-14] MEDS: ZINC SULFATE 220 MG CAPSULE PO SCH (09:29)
[2020-10-14] MEDS: ASCORBIC ACID 500 MG TABLET PO SCH ×2 (09:29→21:09)
[2020-10-14 09:42] LABS: INR 1.7; PT Patient Result 18.3 SECS (10.5-12.0)
[2020-10-14] MEDS: cefTRIAXone 1,000 MG in SODIUM CHLORIDE 0.9% 100 ML IV SCH (10:16)
[2020-10-14] MEDS: PHENYLEPHRINE DRIP 40 MG/250 ML PREMIX IV PRN (11:13)
[2020-10-14 13:56] LABS: Alpha-1-Antitrypsin, Serum 185 mg/dL (100 - 190)
[2020-10-14] MEDS ORDERED: DIGOXIN 0.5 MG/2 ML AMP IV ONE ×2 (15:49→16:57)
[2020-10-14] MEDS ORDERED: DIGOXIN 0.5 MG/2 ML AMP ONE (15:53)
[2020-10-14] MEDS: ROSUVASTATIN 20 MG TABLET PO SCH (21:08)
[2020-10-14] MEDS: PARoxetine 10 MG TABLET PO SCH (21:09)
[2020-10-15] MEDS: INSULIN REGULAR 100 UNIT/ML SUBCUT SCH ×5 (00:09→23:57)
[2020-10-15] MEDS: METOPROLOL TARTRATE 5 MG/5 ML VIAL IV SCH ×5 (00:10→23:35)
[2020-10-15] MEDS: ALBUTEROL INHALER 18 GM INH SCH ×4 (00:11→18:06)
[2020-10-15 04:26] LABS: Hematocrit 23.8 VOL% (42.0-52.0); Immature Granulocytes Absolute 0.06 #; Lymphocytes # 0.8 10*3/uL (1.4-4.0); Mean Corpuscular HGB Conc 29.4 GM/DL (32-36); Mean Corpuscular Volume 89.5 FL (87-102); Mean Platelet Volume 10.2 FL (9.6-12.0); NRBC # 0.02 10*3/uL; Red Blood Count 2.66 MC/CUMM (3.8-5.5); White Blood Count 6.3 T/CUMM (4-12)
[2020-10-15 04:33] LABS: Platelet Count 87 T/CUMM (130-400)
[2020-10-15 04:39] LABS: Calcium 6.9 MG/DL (8.5-10.1); Osmolality,Calculated 314.7 MOS/KG (273-304); Potassium 5.1 MMOL/L (3.5-5.1)
[2020-10-15 04:45] LABS: Hypochromasia 1+; Microcytosis 1+; Ovalocytes Slight; Polychromasia Slight
[2020-10-15 04:47] LABS: Platelet Estimate Decreased
[2020-10-15] MEDS: OCTREOTIDE 500 MCG in SODIUM CHLORIDE 0.9% 100 ML IV SCH ×3 (05:58→18:45)
[2020-10-15] MEDS ORDERED: SODIUM CHLORIDE 0.9% 1,000 ML IV PRN (07:04)
[2020-10-15] MEDS: SODIUM CHLORIDE 0.9% 1,000 ML IV SCH ×5 (08:04→19:30)
[2020-10-15] MEDS: DEXAMETHASONE 4 MG/1 ML VIAL IV SCH (09:03)
[2020-10-15] MEDS: FAMOTIDINE 20 MG/2 ML VIAL IV SCH ×2 (09:03→21:05)
[2020-10-15] MEDS: GABAPENTIN 100 MG CAPSULE PO SCH ×2 (09:03→21:15)
[2020-10-15] MEDS: ASPIRIN CHEW 81 MG TABLET PO SCH (09:03)
[2020-10-15] MEDS: FERROUS SULFATE 325 MG TABLET PO SCH ×2 (09:03→21:15)
[2020-10-15] MEDS: POLYETHYLENE GLYCOL POWDER 17 GM PACK PO SCH ×2 (09:03→21:15)
[2020-10-15] MEDS: ZINC SULFATE 220 MG CAPSULE PO SCH (09:04)
[2020-10-15] MEDS: ASCORBIC ACID 500 MG TABLET PO SCH ×2 (09:04→21:15)
[2020-10-15] MEDS: CHOLECALCIFEROL 1,000 UNIT TABLET PO SCH (09:04)
[2020-10-15] MEDS: cefTRIAXone 1,000 MG in SODIUM CHLORIDE 0.9% 100 ML IV SCH (10:10)
[2020-10-15] MEDS ORDERED: METOPROLOL TARTRATE 5 MG/5 ML VIAL IV ONE (11:05)
[2020-10-15] MEDS ORDERED: SODIUM CHLORIDE 0.9% 500 ML IV ONE (12:14)
[2020-10-15] MEDS: ROSUVASTATIN 20 MG TABLET PO SCH (21:15)
[2020-10-15] MEDS: PARoxetine 10 MG TABLET PO SCH (21:15)
[2020-10-15] MEDS: MORPHINE 4 MG/1 ML VIAL IV PRN (21:30)
[2020-10-15 23:36] LABS: CDT Result Negative (Negative); CDT Specimen Source STOOL
[2020-10-16] MEDS: ALBUTEROL INHALER 18 GM INH SCH ×4 (00:01→19:45)
[2020-10-16] MEDS: MORPHINE 4 MG/1 ML VIAL IV PRN (02:05)
[2020-10-16] MEDS ORDERED: LORazepam 2 MG/1 ML VIAL IV ONE (03:12)
[2020-10-16 03:43] LABS: Immature Granulocytes % 0.6 %; Immature Granulocytes Absolute 0.01 #; Lymphocytes # 0.2 10*3/uL (1.4-4.0); Lymphocytes % 13.3 % (21.2-54.2); Mean Corpuscular HGB Conc 29.7 GM/DL (32-36); Mean Corpuscular Volume 90.2 FL (87-102); Mean Platelet Volume 9.3 FL (9.6-12.0); Monocytes % 9.2 % (1.7-12.7); Neutrophils % 76.9 % (38.7-73.9); Platelet Count 46 T/CUMM (130-400); Red Blood Count 1.94 MC/CUMM (3.8-5.5); White Blood Count 1.7 T/CUMM (4-12)
[2020-10-16 03:44] LABS: Hemoglobin 5.2 GM/DL (14.0-18.0)
[2020-10-16 03:45] LABS: Hematocrit 17.5 VOL% (42.0-52.0)
[2020-10-16 03:55] LABS: Calcium 7.1 MG/DL (8.5-10.1); Osmolality,Calculated 312.3 MOS/KG (273-304); Potassium 4.2 MMOL/L (3.5-5.1)
[2020-10-16 04:06] LABS: Hypochromasia 2+; Lymphocytes 10 % (20-55); Microcytosis 1+; Platelet Estimate Decreased; Segmented Neutrophils 79 % (50-85); Total Cells Counted 100
[2020-10-16 04:57] LABS: Allen Test Positive
[2020-10-16 04:58] LABS: ABG Base Excess -5.3 MMOL/L (-2.5-2.5); ABG HCO3 19.5 MMOL/L (20-26); ABG Oxygen Saturation 96.8 % (95-100); ABG PH 7.376 (7.35-7.45); ABG PO2 100.1 MM HG (80-95); ABG TCO2 20.5 MMOL/L (23-27)
[2020-10-16] MEDS: SODIUM CHLORIDE 0.9% 1,000 ML IV SCH ×5 (05:35→21:54)
[2020-10-16] MEDS: OCTREOTIDE 500 MCG in SODIUM CHLORIDE 0.9% 100 ML IV SCH ×3 (05:35→15:35)
[2020-10-16] MEDS: METOPROLOL TARTRATE 5 MG/5 ML VIAL IV SCH (05:53)
[2020-10-16] MEDS: INSULIN REGULAR 100 UNIT/ML SUBCUT SCH ×4 (05:54→23:56)
[2020-10-16] MEDS: FAMOTIDINE 20 MG/2 ML VIAL IV SCH ×2 (08:45→20:56)
[2020-10-16] MEDS: DEXAMETHASONE 4 MG/1 ML VIAL IV SCH (08:45)
[2020-10-16] MEDS: ASCORBIC ACID 500 MG TABLET PO SCH ×2 (08:46→21:13)
[2020-10-16] MEDS: FERROUS SULFATE 325 MG TABLET PO SCH ×2 (08:46→21:12)
[2020-10-16] MEDS: ZINC SULFATE 220 MG CAPSULE PO SCH (08:46)
[2020-10-16] MEDS: POLYETHYLENE GLYCOL POWDER 17 GM PACK PO SCH ×4 (08:46→21:13)
[2020-10-16] MEDS: GABAPENTIN 100 MG CAPSULE PO SCH ×2 (08:47→21:13)
[2020-10-16] MEDS: ASPIRIN CHEW 81 MG TABLET PO SCH (08:47)
[2020-10-16] MEDS: CHOLECALCIFEROL 1,000 UNIT TABLET PO SCH (08:47)
[2020-10-16] MEDS: METOPROLOL TARTRATE 25 MG TABLET PO SCH ×2 (13:53→21:12)
[2020-10-16] MEDS: cefTRIAXone 1,000 MG in SODIUM CHLORIDE 0.9% 100 ML IV SCH (13:53)
[2020-10-16] MEDS: LORazepam 2 MG/1 ML VIAL IV PRN (13:55)
[2020-10-16] MEDS: DEXMEDETOMIDINE 200 MCG in SODIUM CHLORIDE 0.9% 48 ML IV PRN ×2 (15:00→21:33)
[2020-10-16] MEDS: ROSUVASTATIN 20 MG TABLET PO SCH (21:12)
[2020-10-16] MEDS: PARoxetine 10 MG TABLET PO SCH (21:13)
[2020-10-17] MEDS: ALBUTEROL INHALER 18 GM INH SCH ×4 (00:25→19:07)
[2020-10-17] MEDS: SODIUM CHLORIDE 0.9% 1,000 ML IV SCH ×4 (00:25→17:02)
[2020-10-17] MEDS: MORPHINE 4 MG/1 ML VIAL IV PRN ×3 (01:15→17:16)
[2020-10-17] MEDS: OCTREOTIDE 500 MCG in SODIUM CHLORIDE 0.9% 100 ML IV SCH ×4 (01:20→16:20)
[2020-10-17 04:18] LABS: Hematocrit 21.6 VOL% (42.0-52.0); Immature Granulocytes % 0.5 %; Immature Granulocytes Absolute 0.01 #; Lymphocytes # 0.2 10*3/uL (1.4-4.0); Lymphocytes % 10.3 % (21.2-54.2); Mean Corpuscular HGB Conc 30.1 GM/DL (32-36); Mean Corpuscular Volume 92.3 FL (87-102); Mean Platelet Volume 9.4 FL (9.6-12.0); Monocytes % 8.1 % (1.7-12.7); NRBC # 0.02 10*3/uL; Neutrophils % 81.1 % (38.7-73.9); Red Cell Distribution Width 24.2 % (9.3-17.3); White Blood Count 1.9 T/CUMM (4-12)
[2020-10-17 04:22] LABS: Hemoglobin 6.5 GM/DL (14.0-18.0); Platelet Count 42 T/CUMM (130-400); Red Blood Count 2.34 MC/CUMM (3.8-5.5)
[2020-10-17 04:32] LABS: INR 1.4; PT Patient Result 15.1 SECS (10.5-12.0)
[2020-10-17 04:38] LABS: Albumin 2.1 G/DL (3.4-5.0); Bilirubin,Direct 2.02 MG/DL (0.0-0.20); Bilirubin,Indirect 0.8 MG/DL (0.0-1.0); Bilirubin,Total 2.8 MG/DL (0.2-1.0); Bilirubin,Total 3.1 MG/DL (0.2-1.0); Calcium 7.4 MG/DL (8.5-10.1); Osmolality,Calculated 316.3 MOS/KG (273-304); Potassium 4.7 MMOL/L (3.5-5.1); Total Protein 4.2 G/DL (6.4-8.2); Total Protein 4.5 G/DL (6.4-8.2)
[2020-10-17] MEDS: INSULIN REGULAR 100 UNIT/ML SUBCUT SCH ×3 (06:12→18:40)
[2020-10-17 06:44] LABS: Band Neutrophils 1 % (0-10); Lymphocytes 4 % (20-55); Nucleated Red Blood Cells 2 (0-5); Segmented Neutrophils 93 % (50-85); Total Cells Counted 100
[2020-10-17 06:45] LABS: Hypochromasia 1+; Platelet Estimate Decreased; Polychromasia Few; Tear Drop Cells Few
[2020-10-17] MEDS ORDERED: SODIUM CHLORIDE 0.9% 1,000 ML IV PRN ×2 (08:19→08:22)
[2020-10-17] MEDS: DEXAMETHASONE 4 MG/1 ML VIAL IV SCH (08:59)
[2020-10-17] MEDS: FAMOTIDINE 20 MG/2 ML VIAL IV SCH ×2 (09:00→20:06)
[2020-10-17] MEDS: LORazepam 2 MG/1 ML VIAL IV PRN ×2 (09:01→20:07)
[2020-10-17] MEDS: METOPROLOL TARTRATE 25 MG TABLET PO SCH ×2 (09:02→20:30)
[2020-10-17] MEDS: ASPIRIN CHEW 81 MG TABLET PO SCH (09:02)
[2020-10-17] MEDS: POLYETHYLENE GLYCOL POWDER 17 GM PACK PO SCH ×4 (09:02→20:30)
[2020-10-17] MEDS: FERROUS SULFATE 325 MG TABLET PO SCH ×2 (09:02→20:30)
[2020-10-17] MEDS: ASCORBIC ACID 500 MG TABLET PO SCH ×2 (09:03→20:30)
[2020-10-17] MEDS: GABAPENTIN 100 MG CAPSULE PO SCH ×2 (09:03→20:30)
[2020-10-17] MEDS: ZINC SULFATE 220 MG CAPSULE PO SCH (09:03)
[2020-10-17] MEDS: CHOLECALCIFEROL 1,000 UNIT TABLET PO SCH (09:03)
[2020-10-17] MEDS ORDERED: METOPROLOL TARTRATE 5 MG/5 ML VIAL IV SCH (12:20)
[2020-10-17] MEDS: cefTRIAXone 1,000 MG in SODIUM CHLORIDE 0.9% 100 ML IV SCH (12:31)
[2020-10-17] MEDS ORDERED: METOPROLOL TARTRATE 5 MG/5 ML VIAL IV ONE (13:13)
[2020-10-17] MEDS ORDERED: DIGOXIN 0.5 MG/2 ML AMP IV ONE (13:14)
[2020-10-17] MEDS ORDERED: SODIUM CHLORIDE 0.45% 1,000 ML IV SCH (13:30)
[2020-10-17] MEDS: METOPROLOL TARTRATE 5 MG/5 ML VIAL IV PRN (17:16)
[2020-10-17] MEDS: ROSUVASTATIN 20 MG TABLET PO SCH (20:30)
[2020-10-17] MEDS: PARoxetine 10 MG TABLET PO SCH (20:30)
[2020-10-17] MEDS ORDERED: FUROSEMIDE 40 MG/4 ML VIAL ONE (22:52)
[2020-10-17] MEDS ORDERED: FUROSEMIDE 40 MG/4 ML VIAL IV ONE (23:00)
[2020-10-17] MEDS ORDERED: LABETALOL 20 MG/4 ML SYRINGE IV ONE ×2 (23:00→23:30)
[2020-10-17] MEDS ORDERED: ROCURONIUM 100 MG/10 ML VIAL IV ONE ×2 (23:03→23:48)
[2020-10-17] MEDS ORDERED: ETOMIDATE 20 MG/10 ML VIAL IV ONE ×2 (23:04→23:48)
[2020-10-17 23:35] LABS: ABG Base Excess -9.9 MMOL/L (-2.5-2.5); ABG HCO3 17.4 MMOL/L (20-26); ABG Oxygen Saturation 81.4 % (95-100); ABG PCO2 44.1 MM HG (35-48); ABG PH 7.215 (7.35-7.45); ABG PO2 58.2 MM HG (80-95); ABG TCO2 18.8 MMOL/L (23-27)
[2020-10-18] MEDS ORDERED: FUROSEMIDE 40 MG/4 ML VIAL IV ONE (00:39)
[2020-10-18 01:11] LABS: Basophils % 0.1 % (0.0-0.8); Hematocrit 32.1 VOL% (42.0-52.0); Hemoglobin 9.6 GM/DL (14.0-18.0); Immature Granulocytes Absolute 0.14 #; Lymphocytes # 0.3 10*3/uL (1.4-4.0); Lymphocytes % 2.2 % (21.2-54.2); Mean Corpuscular HGB Conc 29.9 GM/DL (32-36); Monocytes % 6.1 % (1.7-12.7); NRBC # 0.06 10*3/uL; Neutrophils % 90.6 % (38.7-73.9); Platelet Count 87 T/CUMM (130-400); Red Blood Count 3.38 MC/CUMM (3.8-5.5); Red Cell Distribution Width 25.3 % (9.3-17.3); White Blood Count 13.5 T/CUMM (4-12)
[2020-10-18 01:21] LABS: INR 1.3; PT Patient Result 14.1 SECS (10.5-12.0); Partial Thromboplastin Time 25.2 SECS (23.9-33.8)
[2020-10-18 01:28] LABS: CKMB % 16.3 %
[2020-10-18 01:31] LABS: High Sensitive Troponin I* 10676.6 ng/L (0-78)
[2020-10-18 01:36] LABS: Albumin 2.5 G/DL (3.4-5.0); Bilirubin,Total 4.2 MG/DL (0.2-1.0); Calcium 7.6 MG/DL (8.5-10.1); Osmolality,Calculated 308.6 MOS/KG (273-304); Potassium 5.1 MMOL/L (3.5-5.1); Total Protein 5.3 G/DL (6.4-8.2)
[2020-10-18 01:40] LABS: Lymphocytes 4 % (20-55); Nucleated Red Blood Cells 1 (0-5); Platelet Estimate Decreased; Segmented Neutrophils 94 % (50-85); Total Cells Counted 100
[2020-10-18 01:41] LABS: Hypochromasia Slight
[2020-10-18] MEDS: OCTREOTIDE 500 MCG in SODIUM CHLORIDE 0.9% 100 ML IV SCH (01:50)
[2020-10-18] MEDS: ALBUTEROL INHALER 18 GM INH SCH ×4 (01:50→19:06)
[2020-10-18] MEDS: PHENYLEPHRINE DRIP 40 MG/250 ML PREMIX IV PRN ×5 (02:00→22:49)
[2020-10-18] MEDS: INSULIN REGULAR 100 UNIT/ML SUBCUT SCH ×4 (02:32→19:05)
[2020-10-18] MEDS: SODIUM CHLORIDE 0.9% 1,000 ML IV SCH (02:34)
[2020-10-18 09:16] LABS: Basophils % 0.1 % (0.0-0.8); Hematocrit 29.8 VOL% (42.0-52.0); Hemoglobin 9.5 GM/DL (14.0-18.0); Immature Granulocytes % 0.7 %; Immature Granulocytes Absolute 0.11 #; Lymphocytes # 0.8 10*3/uL (1.4-4.0); Lymphocytes % 5.1 % (21.2-54.2); Mean Corpuscular HGB Conc 31.9 GM/DL (32-36); Mean Corpuscular Volume 92.3 FL (87-102); Mean Platelet Volume 10.9 FL (9.6-12.0); Monocytes % 6.7 % (1.7-12.7); NRBC # 0.07 10*3/uL; Neutrophils % 87.4 % (38.7-73.9); Platelet Count 80 T/CUMM (130-400); Red Blood Count 3.23 MC/CUMM (3.8-5.5); Red Cell Distribution Width 26.1 % (9.3-17.3); White Blood Count 15.8 T/CUMM (4-12)
[2020-10-18] MEDS: METOPROLOL TARTRATE 25 MG TABLET PO SCH ×2 (09:17→21:02)
[2020-10-18] MEDS: ASPIRIN CHEW 81 MG TABLET PO SCH (09:17)
[2020-10-18] MEDS: POLYETHYLENE GLYCOL POWDER 17 GM PACK PO SCH ×4 (09:17→21:03)
[2020-10-18] MEDS: FERROUS SULFATE 325 MG TABLET PO SCH ×2 (09:17→21:02)
[2020-10-18] MEDS: ZINC SULFATE 220 MG CAPSULE PO SCH (09:18)
[2020-10-18] MEDS: DIGOXIN 0.5 MG/2 ML AMP IV SCH (09:18)
[2020-10-18] MEDS: GABAPENTIN 100 MG CAPSULE PO SCH ×2 (09:18→21:03)
[2020-10-18] MEDS: ASCORBIC ACID 500 MG TABLET PO SCH ×2 (09:18→21:03)
[2020-10-18] MEDS: CHOLECALCIFEROL 1,000 UNIT TABLET PO SCH (09:18)
[2020-10-18] MEDS: FAMOTIDINE 20 MG/2 ML VIAL IV SCH ×2 (09:19→20:40)
[2020-10-18] MEDS: DEXAMETHASONE 4 MG/1 ML VIAL IV SCH (09:20)
[2020-10-18 09:27] LABS: INR 1.3; PT Patient Result 14.2 SECS (10.5-12.0)
[2020-10-18 09:46] LABS: Albumin 2.3 G/DL (3.4-5.0); Calcium 7.6 MG/DL (8.5-10.1); Osmolality,Calculated 308.7 MOS/KG (273-304); Potassium 5.1 MMOL/L (3.5-5.1)
[2020-10-18 10:38] LABS: Hypochromasia 1+; Platelet Estimate Adequate
[2020-10-18 11:39] LABS: ABG Base Excess -5.4 MMOL/L (-2.5-2.5); ABG PCO2 32.4 MM HG (35-48); ABG PH 7.375 (7.35-7.45); ABG TCO2 17.5 MMOL/L (23-27); Allen Test Positive; Pt O2 Delivery Device Ventilator
[2020-10-18] MEDS ORDERED: HEPARIN DRIP 25,000 UNITS/500 ML PREMIX IV SCH (12:30)
[2020-10-18] MEDS: cefTRIAXone 1,000 MG in SODIUM CHLORIDE 0.9% 100 ML IV SCH (14:00)
[2020-10-18] MEDS: HEPARIN DRIP 25,000 UNITS/500 ML PREMIX IV SCH (14:32)
[2020-10-18] MEDS ORDERED: DIGOXIN 0.5 MG/2 ML AMP IV ONE (14:55)
[2020-10-18] MEDS: METOPROLOL TARTRATE 5 MG/5 ML VIAL IV PRN (15:41)
[2020-10-18] MEDS ORDERED: NOREPINEPHRINE 8 MG in SODIUM CHLORIDE 0.9% 242 ML IV PRN (16:16)
[2020-10-18] MEDS: ROSUVASTATIN 20 MG TABLET PO SCH (21:02)
[2020-10-18] MEDS: PARoxetine 10 MG TABLET PO SCH (21:03)
[2020-10-19] MEDS: INSULIN REGULAR 100 UNIT/ML SUBCUT SCH ×4 (00:28→18:11)
[2020-10-19] MEDS: ALBUTEROL INHALER 18 GM INH SCH ×4 (00:41→20:05)
[2020-10-19 03:55] LABS: Basophils % 0.1 % (0.0-0.8); Hematocrit 27.8 VOL% (42.0-52.0); Hemoglobin 8.6 GM/DL (14.0-18.0); Immature Granulocytes % 0.8 %; Immature Granulocytes Absolute 0.08 #; Lymphocytes # 0.6 10*3/uL (1.4-4.0); Lymphocytes % 5.6 % (21.2-54.2); Mean Corpuscular HGB Conc 30.9 GM/DL (32-36); Mean Corpuscular Volume 93.9 FL (87-102); Mean Platelet Volume 10.8 FL (9.6-12.0); Monocytes % 5.3 % (1.7-12.7); NRBC # 0.07 10*3/uL; Neutrophils % 88.2 % (38.7-73.9); Platelet Count 80 T/CUMM (130-400); Red Blood Count 2.96 MC/CUMM (3.8-5.5); Red Cell Distribution Width 26.5 % (9.3-17.3); White Blood Count 10.5 T/CUMM (4-12)
[2020-10-19 04:15] LABS: Calcium 7.5 MG/DL (8.5-10.1); Osmolality,Calculated 321.6 MOS/KG (273-304)
[2020-10-19 04:16] LABS: ABG Base Excess -6.1 MMOL/L (-2.5-2.5); ABG HCO3 19.4 MMOL/L (20-26); ABG PCO2 32.1 MM HG (35-48); ABG PH 7.367 (7.35-7.45); ABG TCO2 17.2 MMOL/L (23-27); Allen Test Positive; Pt O2 Delivery Device Ventilator
[2020-10-19 04:21] LABS: Hypochromasia 1+; Microcytosis 1+; Platelet Estimate Decreased
[2020-10-19] MEDS: FERROUS SULFATE 325 MG TABLET PO SCH (09:03)
[2020-10-19] MEDS: DEXAMETHASONE 4 MG/1 ML VIAL IV SCH (09:03)
[2020-10-19] MEDS: DIGOXIN 0.5 MG/2 ML AMP IV SCH (09:03)
[2020-10-19] MEDS: ASPIRIN CHEW 81 MG TABLET PO SCH (09:03)
[2020-10-19] MEDS: FAMOTIDINE 20 MG/2 ML VIAL IV SCH ×2 (09:04→20:10)
[2020-10-19] MEDS: METOPROLOL TARTRATE 25 MG TABLET PO SCH (09:04)
[2020-10-19] MEDS: ASCORBIC ACID 500 MG TABLET PO SCH ×2 (09:04→21:10)
[2020-10-19] MEDS: GABAPENTIN 100 MG CAPSULE PO SCH ×2 (09:04→21:09)
[2020-10-19] MEDS: POLYETHYLENE GLYCOL POWDER 17 GM PACK PO SCH ×2 (09:04)
[2020-10-19] MEDS: CHOLECALCIFEROL 1,000 UNIT TABLET PO SCH (09:04)
[2020-10-19] MEDS: ZINC SULFATE 220 MG CAPSULE PO SCH (09:05)
[2020-10-19] MEDS: PHENYLEPHRINE DRIP 40 MG/250 ML PREMIX IV PRN (09:40)
[2020-10-19] MEDS: cefTRIAXone 1,000 MG in SODIUM CHLORIDE 0.9% 100 ML IV SCH (10:00)
[2020-10-19] MEDS: HEPARIN DRIP 25,000 UNITS/500 ML PREMIX IV SCH (12:36)
[2020-10-19] MEDS: FUROSEMIDE 20 MG/2 ML VIAL IV SCH (13:58)
[2020-10-19 16:31] LABS: Hematocrit 27.5 VOL% (42.0-52.0); Hemoglobin 8.3 GM/DL (14.0-18.0)
[2020-10-19] MEDS: ROSUVASTATIN 20 MG TABLET PO SCH (21:09)
[2020-10-19 22:25] LABS: Hematocrit 23.3 VOL% (42.0-52.0); Hemoglobin 7.3 GM/DL (14.0-18.0)
[2020-10-20] MEDS: INSULIN REGULAR 100 UNIT/ML SUBCUT SCH ×4 (00:10→18:27)
[2020-10-20] MEDS: ALBUTEROL INHALER 18 GM INH SCH ×4 (00:15→18:28)
[2020-10-20 04:36] LABS: Hematocrit 25.5 VOL% (42.0-52.0); Hemoglobin 7.9 GM/DL (14.0-18.0); Immature Granulocytes % 0.5 %; Immature Granulocytes Absolute 0.02 #; Lymphocytes # 0.3 10*3/uL (1.4-4.0); Lymphocytes % 7.7 % (21.2-54.2); Mean Corpuscular Volume 92.4 FL (87-102); Mean Platelet Volume 11.9 FL (9.6-12.0); Monocytes % 5.2 % (1.7-12.7); NRBC # 0.02 10*3/uL; Neutrophils % 86.6 % (38.7-73.9); Platelet Count 40 T/CUMM (130-400); Red Blood Count 2.76 MC/CUMM (3.8-5.5); Red Cell Distribution Width 26.6 % (9.3-17.3); White Blood Count 4.4 T/CUMM (4-12)
[2020-10-20 04:47] LABS: Allen Test Positive; Pt O2 Delivery Device Ventilator
[2020-10-20 04:48] LABS: ABG Base Excess -1.5 MMOL/L (-2.5-2.5); ABG HCO3 22.2 MMOL/L (20-26); ABG Oxygen Saturation 98.3 % (95-100); ABG PCO2 33.2 MM HG (35-48); ABG PH 7.444 (7.35-7.45); ABG PO2 139.4 MM HG (80-95); ABG TCO2 23.3 MMOL/L (23-27)
[2020-10-20 04:50] LABS: Albumin 2.1 G/DL (3.4-5.0); Calcium 7.4 MG/DL (8.5-10.1); Osmolality,Calculated 316.6 MOS/KG (273-304); Potassium 4.6 MMOL/L (3.5-5.1); Total Protein 4.9 G/DL (6.4-8.2)
[2020-10-20 04:59] LABS: INR 1.2; PT Patient Result 13.8 SECS (10.5-12.0)
[2020-10-20 05:00] LABS: Hypochromasia 2+; Microcytosis 1+; Ovalocytes Slight; Platelet Estimate Decreased
[2020-10-20 05:01] LABS: Partial Thromboplastin Time 82.1 SECS (23.9-33.8)
[2020-10-20] MEDS: PHENYLEPHRINE DRIP 40 MG/250 ML PREMIX IV PRN (05:05)
[2020-10-20 05:37] LABS: Ferritin 176.8 ng/ml (26-388)
[2020-10-20] MEDS ORDERED: SODIUM CHLORIDE 0.9% 1,000 ML IV PRN (07:12)
[2020-10-20] MEDS: DEXAMETHASONE 4 MG/1 ML VIAL IV SCH (08:18)
[2020-10-20] MEDS: ASPIRIN CHEW 81 MG TABLET PO SCH (08:18)
[2020-10-20] MEDS: CHOLECALCIFEROL 1,000 UNIT TABLET PO SCH (08:19)
[2020-10-20] MEDS: FAMOTIDINE 20 MG/2 ML VIAL IV SCH ×2 (08:19→20:39)
[2020-10-20] MEDS: FUROSEMIDE 20 MG/2 ML VIAL IV SCH (08:19)
[2020-10-20] MEDS: GABAPENTIN 100 MG CAPSULE PO SCH ×2 (08:19→21:19)
[2020-10-20] MEDS: ASCORBIC ACID 500 MG TABLET PO SCH ×2 (08:19→21:19)
[2020-10-20] MEDS: ROSUVASTATIN 20 MG TABLET PO SCH (21:19)
[2020-10-21] MEDS: INSULIN REGULAR 100 UNIT/ML SUBCUT SCH ×4 (00:10→18:30)
[2020-10-21] MEDS: ALBUTEROL INHALER 18 GM INH SCH ×4 (01:50→19:00)
[2020-10-21 04:25] LABS: Hematocrit 21.2 VOL% (42.0-52.0); Lymphocytes # 0.2 10*3/uL (1.4-4.0); Lymphocytes % 13.3 % (21.2-54.2); Mean Corpuscular HGB Conc 31.1 GM/DL (32-36); Mean Corpuscular Volume 93.8 FL (87-102); Mean Platelet Volume 9.9 FL (9.6-12.0); Monocytes % 7.7 % (1.7-12.7); Red Blood Count 2.26 MC/CUMM (3.8-5.5); Red Cell Distribution Width 26.7 % (9.3-17.3)
[2020-10-21 04:31] LABS: Hemoglobin 6.6 GM/DL (14.0-18.0); White Blood Count 1.4 T/CUMM (4-12)
[2020-10-21 04:33] LABS: Platelet Count 27 T/CUMM (130-400)
[2020-10-21 04:44] LABS: Bilirubin,Total 1.8 MG/DL (0.2-1.0); Calcium 7.5 MG/DL (8.5-10.1); Ferritin 115.5 ng/ml (26-388); Osmolality,Calculated 315.6 MOS/KG (273-304); Potassium 4.6 MMOL/L (3.5-5.1); Total Protein 4.6 G/DL (6.4-8.2)
[2020-10-21 04:46] LABS: Hypochromasia 2+; Microcytosis 1+; Platelet Estimate Decreased
[2020-10-21 04:52] LABS: ABG Base Excess 1.8 MMOL/L (-2.5-2.5); ABG HCO3 25.2 MMOL/L (20-26); ABG Oxygen Saturation 98.4 % (95-100); ABG PCO2 32.9 MM HG (35-48); ABG PH 7.502 (7.35-7.45); ABG PO2 158.3 MM HG (80-95); ABG TCO2 26.2 MMOL/L (23-27); Allen Test Positive; Pt O2 Delivery Device Ventilator
[2020-10-21] MEDS ORDERED: SODIUM CHLORIDE 0.9% 1,000 ML IV PRN (06:32)
[2020-10-21] MEDS: FAMOTIDINE 20 MG/2 ML VIAL IV SCH ×2 (09:23→20:10)
[2020-10-21] MEDS: DEXAMETHASONE 4 MG/1 ML VIAL IV SCH (09:23)
[2020-10-21] MEDS: ASPIRIN CHEW 81 MG TABLET PO SCH (09:32)
[2020-10-21] MEDS: ASPIRIN 300 MG SUPP RECTAL SCH (09:32)
[2020-10-21] MEDS: GABAPENTIN 100 MG CAPSULE PO SCH ×2 (09:33→20:56)
[2020-10-21] MEDS: ASCORBIC ACID 500 MG TABLET PO SCH ×2 (09:33→20:56)
[2020-10-21] MEDS: CHOLECALCIFEROL 1,000 UNIT TABLET PO SCH (09:33)
[2020-10-21] MEDS: hydrALAZINE 20 MG/1 ML VIAL IV PRN (12:41)
[2020-10-21 14:46] LABS: INR 1.3
[2020-10-21] MEDS: AMINO ACIDS/DEXT/LYTES 4.25-5% 2,000 ML IV SCH (17:53)
[2020-10-21] MEDS ORDERED: DEXMEDETOMIDINE 200 MCG in SODIUM CHLORIDE 0.9% 48 ML IV PRN (18:47)
[2020-10-21] MEDS: ROSUVASTATIN 20 MG TABLET PO SCH (20:55)
[2020-10-21] MEDS: MORPHINE 4 MG/1 ML VIAL IV PRN (22:28)
[2020-10-22] MEDS: INSULIN REGULAR 100 UNIT/ML SUBCUT SCH ×4 (00:07→18:15)
[2020-10-22] MEDS: ALBUTEROL INHALER 18 GM INH SCH ×4 (01:00→20:24)
[2020-10-22] MEDS ORDERED: DEXMEDETOMIDINE 400 MCG in SODIUM CHLORIDE 0.9% 96 ML IV PRN (02:00)
[2020-10-22 05:25] LABS: ABG HCO3 26.9 MMOL/L (20-26); ABG Oxygen Saturation 79.3 % (95-100); ABG PCO2 36.6 MM HG (35-48); ABG PH 7.472 (7.35-7.45); ABG PO2 46.1 MM HG (80-95); ABG TCO2 25.6 MMOL/L (23-27)
[2020-10-22 06:34] LABS: INR 1.3; PT Patient Result 14.2 SECS (10.5-12.0)
[2020-10-22 06:37] LABS: Eosinophils % 0.8 % (0.00-10.9); Hematocrit 21.3 VOL% (42.0-52.0); Hemoglobin 6.6 GM/DL (14.0-18.0); Immature Granulocytes % 0.8 %; Immature Granulocytes Absolute 0.01 #; Lymphocytes # 0.2 10*3/uL (1.4-4.0); Lymphocytes % 16.1 % (21.2-54.2); Mean Corpuscular Volume 95.1 FL (87-102); Mean Platelet Volume 10.7 FL (9.6-12.0); Monocytes % 7.3 % (1.7-12.7); Red Blood Count 2.24 MC/CUMM (3.8-5.5); Red Cell Distribution Width 26.5 % (9.3-17.3); White Blood Count 1.2 T/CUMM (4-12)
[2020-10-22 06:44] LABS: Calcium 7.8 MG/DL (8.5-10.1); Osmolality,Calculated 322.1 MOS/KG (273-304); Potassium 4.3 MMOL/L (3.5-5.1)
[2020-10-22 06:47] LABS: Albumin 2.1 G/DL (3.4-5.0); Bilirubin,Direct 1.66 MG/DL (0.0-0.20); Bilirubin,Indirect 0.9 MG/DL (0.0-1.0); Bilirubin,Total 2.6 MG/DL (0.2-1.0); Total Protein 4.8 G/DL (6.4-8.2)
[2020-10-22 06:54] LABS: Platelet Count 20 T/CUMM (130-400)
[2020-10-22 07:21] LABS: Band Neutrophils 1 % (0-10); Hypochromasia 1+; Lymphocytes 17 % (20-55); Microcytosis Slight; Platelet Estimate Decreased; Segmented Neutrophils 78 % (50-85); Total Cells Counted 100
[2020-10-22] MEDS ORDERED: SODIUM CHLORIDE 0.9% 1,000 ML IV PRN (07:47)
[2020-10-22] MEDS: ASPIRIN CHEW 81 MG TABLET PO SCH (09:40)
[2020-10-22] MEDS: GABAPENTIN 100 MG CAPSULE PO SCH ×2 (09:41→20:51)
[2020-10-22] MEDS: CHOLECALCIFEROL 1,000 UNIT TABLET PO SCH (09:41)
[2020-10-22] MEDS: ASCORBIC ACID 500 MG TABLET PO SCH ×2 (09:41→20:51)
[2020-10-22] MEDS: FAMOTIDINE 20 MG/2 ML VIAL IV SCH ×2 (09:43→20:49)
[2020-10-22] MEDS: DEXAMETHASONE 4 MG/1 ML VIAL IV SCH (09:44)
[2020-10-22] MEDS: ASPIRIN 300 MG SUPP RECTAL SCH (09:44)
[2020-10-22] MEDS: METOPROLOL TARTRATE 5 MG/5 ML VIAL IV PRN ×2 (14:50→20:49)
[2020-10-22] MEDS: AMINO ACIDS/DEXT/LYTES 4.25-5% 2,000 ML IV SCH (18:15)
[2020-10-22] MEDS: FAT EMULSION 20% 250 ML IV SCH (18:16)
[2020-10-22] MEDS: LORazepam 2 MG/1 ML VIAL IV PRN (20:50)
[2020-10-22] MEDS: ROSUVASTATIN 20 MG TABLET PO SCH (20:51)
[2020-10-22] MEDS: MORPHINE 4 MG/1 ML VIAL IV PRN (23:52)
[2020-10-23] MEDS: INSULIN REGULAR 100 UNIT/ML SUBCUT SCH ×4 (00:17→17:54)
[2020-10-23] MEDS: ALBUTEROL INHALER 18 GM INH SCH ×4 (02:03→18:06)
[2020-10-23 02:29] LABS: Hemoglobin 8.2 GM/DL (14.0-18.0)
[2020-10-23] MEDS: MORPHINE 4 MG/1 ML VIAL IV PRN (04:01)
[2020-10-23] MEDS: hydrALAZINE 20 MG/1 ML VIAL IV PRN ×2 (04:02→18:06)
[2020-10-23 04:14] LABS: ABG Base Excess 2.8 MMOL/L (-2.5-2.5); ABG HCO3 26.9 MMOL/L (20-26); ABG PCO2 35.9 MM HG (35-48); ABG PH 7.473 (7.35-7.45); Allen Test Positive; Pt O2 Delivery Device Ventilator
[2020-10-23 06:01] LABS: INR 1.3; PT Patient Result 14.1 SECS (10.5-12.0)
[2020-10-23 06:05] LABS: Hematocrit 26.4 VOL% (42.0-52.0); Hemoglobin 8.6 GM/DL (14.0-18.0); Immature Granulocytes % 0.7 %; Immature Granulocytes Absolute 0.01 #; Lymphocytes # 0.2 10*3/uL (1.4-4.0); Lymphocytes % 14.4 % (21.2-54.2); Mean Corpuscular HGB Conc 32.6 GM/DL (32-36); Mean Corpuscular Volume 94.6 FL (87-102); Monocytes % 9.2 % (1.7-12.7); Neutrophils % 75.7 % (38.7-73.9); Red Blood Count 2.79 MC/CUMM (3.8-5.5); Red Cell Distribution Width 22.7 % (9.3-17.3); White Blood Count 1.5 T/CUMM (4-12)
[2020-10-23 06:06] LABS: Platelet Count 21 T/CUMM (130-400)
[2020-10-23 06:17] LABS: Albumin 1.9 G/DL (3.4-5.0); Bilirubin,Total 3.7 MG/DL (0.2-1.0); Calcium 7.4 MG/DL (8.5-10.1); Potassium 4.1 MMOL/L (3.5-5.1); Total Protein 4.4 G/DL (6.4-8.2)
[2020-10-23 07:26] LABS: Band Neutrophils 1 % (0-10); Lymphocytes 8 % (20-55); Nucleated Red Blood Cells 1 (0-5); Segmented Neutrophils 83 % (50-85); Total Cells Counted 100
[2020-10-23 07:27] LABS: Platelet Estimate Decreased
[2020-10-23] MEDS: ASPIRIN CHEW 81 MG TABLET PO SCH (08:51)
[2020-10-23] MEDS: DEXAMETHASONE 4 MG/1 ML VIAL IV SCH (08:51)
[2020-10-23] MEDS: GABAPENTIN 100 MG CAPSULE PO SCH ×2 (08:52→20:29)
[2020-10-23] MEDS: ASCORBIC ACID 500 MG TABLET PO SCH ×2 (08:52→20:29)
[2020-10-23] MEDS: FAMOTIDINE 20 MG/2 ML VIAL IV SCH ×2 (08:52→20:27)
[2020-10-23] MEDS: CHOLECALCIFEROL 1,000 UNIT TABLET PO SCH (08:53)
[2020-10-23] MEDS: ASPIRIN 300 MG SUPP RECTAL SCH (09:50)
[2020-10-23] MEDS: METOPROLOL TARTRATE 5 MG/5 ML VIAL IV SCH ×2 (14:10→20:25)
[2020-10-23] MEDS ORDERED: SODIUM CHLORIDE 0.9% 1,000 ML IV PRN (16:53)
[2020-10-23] MEDS ORDERED: MULTIVITAMIN INJ 10 ML in AMINO ACIDS/DEXT/LYTES 4.25-5% 2,000 ML IV SCH (17:00)
[2020-10-23] MEDS: FAT EMULSION 20% 250 ML IV SCH (17:38)
[2020-10-23] MEDS: ROSUVASTATIN 20 MG TABLET PO SCH (20:29)
[2020-10-24] MEDS: INSULIN REGULAR 100 UNIT/ML SUBCUT SCH ×4 (00:48→18:15)
[2020-10-24] MEDS: METOPROLOL TARTRATE 5 MG/5 ML VIAL IV SCH ×4 (00:48→19:27)
[2020-10-24] MEDS: ALBUTEROL INHALER 18 GM INH SCH ×4 (00:49→18:05)
[2020-10-24] MEDS: hydrALAZINE 20 MG/1 ML VIAL IV PRN ×2 (01:18→06:22)
[2020-10-24 04:28] LABS: ABG Base Excess 1.9 MMOL/L (-2.5-2.5); ABG HCO3 25.9 MMOL/L (20-26); ABG PCO2 37.7 MM HG (35-48); ABG PH 7.454 (7.35-7.45); ABG PO2 167.7 MM HG (80-95); Allen Test Positive
[2020-10-24 06:07] LABS: Hematocrit 32.9 VOL% (42.0-52.0); Hemoglobin 10.1 GM/DL (14.0-18.0); Immature Granulocytes % 0.8 %; Immature Granulocytes Absolute 0.03 #; Lymphocytes # 0.2 10*3/uL (1.4-4.0); Lymphocytes % 5.9 % (21.2-54.2); Mean Corpuscular HGB Conc 30.7 GM/DL (32-36); Mean Corpuscular Volume 97.1 FL (87-102); Monocytes % 6.6 % (1.7-12.7); Neutrophils % 86.7 % (38.7-73.9); Red Blood Count 3.39 MC/CUMM (3.8-5.5); Red Cell Distribution Width 22.4 % (9.3-17.3); White Blood Count 3.8 T/CUMM (4-12)
[2020-10-24 06:08] LABS: INR 1.2; PT Patient Result 13.1 SECS (10.5-12.0)
[2020-10-24 06:17] LABS: Albumin 2.4 G/DL (3.4-5.0); Bilirubin,Total 6.4 MG/DL (0.2-1.0); Calcium 8.2 MG/DL (8.5-10.1); Osmolality,Calculated 316.1 MOS/KG (273-304); Potassium 4.3 MMOL/L (3.5-5.1); Total Protein 5.6 G/DL (6.4-8.2)
[2020-10-24 06:21] LABS: Ferritin 155.6 ng/ml (26-388)
[2020-10-24 06:33] LABS: Platelet Count 29 T/CUMM (130-400)
[2020-10-24 07:40] LABS: Hypochromasia 1+
[2020-10-24 07:41] LABS: Microcytosis 1+; Platelet Estimate Decreased
[2020-10-24] MEDS: FAMOTIDINE 20 MG/2 ML VIAL IV SCH ×2 (09:55→21:07)
[2020-10-24] MEDS: DEXAMETHASONE 4 MG/1 ML VIAL IV SCH (09:57)
[2020-10-24] MEDS: ASPIRIN CHEW 81 MG TABLET PO SCH (10:15)
[2020-10-24] MEDS: ASCORBIC ACID 500 MG TABLET PO SCH ×2 (10:16→21:21)
[2020-10-24] MEDS: CHOLECALCIFEROL 1,000 UNIT TABLET PO SCH (10:17)
[2020-10-24] MEDS: cloNIDine 0.1 MG/24 HR PATCH TRANSDERM SCH (14:00)
[2020-10-24] MEDS: DEXTROSE 5% 1,000 ML IV SCH (14:00)
[2020-10-24] MEDS: FAT EMULSION 20% 250 ML IV SCH (17:00)
[2020-10-24] MEDS: AMINO ACIDS/DEXT/LYTES 4.25-5% 2,000 ML IV SCH (18:05)
[2020-10-24] MEDS: ROSUVASTATIN 20 MG TABLET PO SCH (21:21)
[2020-10-25] MEDS: ALBUTEROL INHALER 18 GM INH SCH ×4 (01:08→18:08)
[2020-10-25] MEDS: INSULIN REGULAR 100 UNIT/ML SUBCUT SCH ×4 (01:08→18:08)
[2020-10-25] MEDS: METOPROLOL TARTRATE 5 MG/5 ML VIAL IV SCH ×4 (02:15→18:31)
[2020-10-25 05:01] LABS: ABG Base Excess 2.3 MMOL/L (-2.5-2.5); ABG HCO3 26.5 MMOL/L (20-26); ABG Oxygen Saturation 99.8 % (95-100); ABG PCO2 40.9 MM HG (35-48); ABG PH 7.426 (7.35-7.45); ABG TCO2 24.3 MMOL/L (23-27); Allen Test Positive
[2020-10-25 06:51] LABS: Albumin 2.1 G/DL (3.4-5.0); Bilirubin,Total 4.9 MG/DL (0.2-1.0); Calcium 7.9 MG/DL (8.5-10.1); Osmolality,Calculated 310.7 MOS/KG (273-304); Potassium 4.7 MMOL/L (3.5-5.1); Total Protein 5.3 G/DL (6.4-8.2)
[2020-10-25 06:52] LABS: Eosinophils % 0.2 % (0.00-10.9); Hematocrit 30.9 VOL% (42.0-52.0); Hemoglobin 9.3 GM/DL (14.0-18.0); Immature Granulocytes % 0.2 %; Immature Granulocytes Absolute 0.01 #; Lymphocytes # 0.3 10*3/uL (1.4-4.0); Lymphocytes % 6.9 % (21.2-54.2); Mean Corpuscular HGB Conc 30.1 GM/DL (32-36); Mean Corpuscular Volume 97.2 FL (87-102); Mean Platelet Volume 12.1 FL (9.6-12.0); Monocytes % 6.5 % (1.7-12.7); Neutrophils % 86.2 % (38.7-73.9); Red Blood Count 3.18 MC/CUMM (3.8-5.5); Red Cell Distribution Width 21.9 % (9.3-17.3); White Blood Count 4.6 T/CUMM (4-12)
[2020-10-25 06:53] LABS: Platelet Count 32 T/CUMM (130-400)
[2020-10-25 07:27] LABS: Hypochromasia 1+; Microcytosis 1+
[2020-10-25 07:28] LABS: Anisocytosis 1+; Platelet Estimate Decreased
[2020-10-25] MEDS: CHOLECALCIFEROL 1,000 UNIT TABLET PO SCH (08:16)
[2020-10-25] MEDS: ASPIRIN CHEW 81 MG TABLET PO SCH (08:16)
[2020-10-25] MEDS: DEXAMETHASONE 4 MG/1 ML VIAL IV SCH (08:16)
[2020-10-25] MEDS: ASCORBIC ACID 500 MG TABLET PO SCH ×2 (08:16→20:19)
[2020-10-25] MEDS: FAMOTIDINE 20 MG/2 ML VIAL IV SCH ×2 (08:17→20:19)
[2020-10-25] MEDS: DEXTROSE 5% 1,000 ML IV SCH (12:05)
[2020-10-25] MEDS: AMINO ACIDS/DEXT/LYTES 4.25-5% 2,000 ML IV SCH (17:49)
[2020-10-25] MEDS: FAT EMULSION 20% 250 ML IV SCH (17:50)
[2020-10-25] MEDS: ROSUVASTATIN 20 MG TABLET PO SCH (20:19)
[2020-10-26] MEDS: INSULIN REGULAR 100 UNIT/ML SUBCUT SCH ×4 (00:58→18:06)
[2020-10-26] MEDS: ALBUTEROL INHALER 18 GM INH SCH ×4 (00:58→20:27)
[2020-10-26] MEDS: METOPROLOL TARTRATE 5 MG/5 ML VIAL IV SCH ×4 (01:26→20:27)
[2020-10-26] MEDS: DEXTROSE 5% 1,000 ML IV SCH (07:16)
[2020-10-26] MEDS: DEXAMETHASONE 4 MG/1 ML VIAL IV SCH (08:29)
[2020-10-26] MEDS: CHOLECALCIFEROL 1,000 UNIT TABLET PO SCH (08:29)
[2020-10-26] MEDS: ASCORBIC ACID 500 MG TABLET PO SCH ×2 (08:29→20:33)
[2020-10-26] MEDS: ASPIRIN CHEW 81 MG TABLET PO SCH (08:29)
[2020-10-26] MEDS: FAMOTIDINE 20 MG/2 ML VIAL IV SCH ×2 (08:35→20:33)
[2020-10-26 10:22] LABS: Eosinophils % 1.3 % (0.00-10.9); Hematocrit 30.2 VOL% (42.0-52.0); Hemoglobin 9.1 GM/DL (14.0-18.0); Immature Granulocytes % 0.4 %; Immature Granulocytes Absolute 0.01 #; Lymphocytes # 0.1 10*3/uL (1.4-4.0); Lymphocytes % 6.2 % (21.2-54.2); Mean Corpuscular HGB Conc 30.1 GM/DL (32-36); Mean Corpuscular Volume 98.4 FL (87-102); Mean Platelet Volume 10.6 FL (9.6-12.0); Neutrophils % 84.1 % (38.7-73.9); Red Blood Count 3.07 MC/CUMM (3.8-5.5); Red Cell Distribution Width 21.3 % (9.3-17.3); White Blood Count 2.3 T/CUMM (4-12)
[2020-10-26 10:24] LABS: Platelet Count 23 T/CUMM (130-400)
[2020-10-26] MEDS: POLYETHYLENE GLYCOL POWDER 17 GM PACK PO SCH ×2 (10:26→21:31)
[2020-10-26 10:38] LABS: Calcium 7.7 MG/DL (8.5-10.1); Osmolality,Calculated 304.1 MOS/KG (273-304); Potassium 4.3 MMOL/L (3.5-5.1)
[2020-10-26 11:01] LABS: Hypochromasia 1+; Microcytosis 1+; Platelet Estimate Decreased
[2020-10-26] MEDS: FAT EMULSION 20% 250 ML IV SCH (15:18)
[2020-10-26] MEDS: ROSUVASTATIN 20 MG TABLET PO SCH (20:32)
[2020-10-27] MEDS: INSULIN REGULAR 100 UNIT/ML SUBCUT SCH ×5 (00:55→23:48)
[2020-10-27] MEDS: ALBUTEROL INHALER 18 GM INH SCH ×4 (00:55→21:57)
[2020-10-27] MEDS: METOPROLOL TARTRATE 5 MG/5 ML VIAL IV SCH ×4 (01:00→22:53)
[2020-10-27] MEDS: DEXTROSE 5% 1,000 ML IV SCH (01:48)
[2020-10-27 05:08] LABS: Hematocrit 27.6 VOL% (42.0-52.0); Hemoglobin 8.5 GM/DL (14.0-18.0); Immature Granulocytes % 0.5 %; Immature Granulocytes Absolute 0.01 #; Lymphocytes # 0.2 10*3/uL (1.4-4.0); Lymphocytes % 10.8 % (21.2-54.2); Mean Corpuscular HGB Conc 30.8 GM/DL (32-36); Mean Corpuscular Volume 96.5 FL (87-102); Monocytes % 10.8 % (1.7-12.7); Neutrophils % 76.9 % (38.7-73.9); Red Blood Count 2.86 MC/CUMM (3.8-5.5); Red Cell Distribution Width 20.2 % (9.3-17.3)
[2020-10-27 05:09] LABS: Platelet Count 21 T/CUMM (130-400)
[2020-10-27 05:14] LABS: INR 1.2; PT Patient Result 13.4 SECS (10.5-12.0)
[2020-10-27 05:28] LABS: Hypochromasia 1+; Microcytosis 1+; Platelet Estimate Decreased
[2020-10-27 05:32] LABS: Calcium 7.8 MG/DL (8.5-10.1); Potassium 4.1 MMOL/L (3.5-5.1)
[2020-10-27 05:35] LABS: Albumin 2.1 G/DL (3.4-5.0); Bilirubin,Direct 1.98 MG/DL (0.0-0.20); Bilirubin,Indirect 1.3 MG/DL (0.0-1.0); Bilirubin,Total 3.3 MG/DL (0.2-1.0)
[2020-10-27] MEDS ORDERED: SODIUM CHLORIDE 0.9% 1,000 ML IV PRN (06:37)
[2020-10-27] MEDS: POLYETHYLENE GLYCOL POWDER 17 GM PACK PO SCH ×2 (08:44→21:54)
[2020-10-27] MEDS: ASCORBIC ACID 500 MG TABLET PO SCH ×2 (08:45→21:54)
[2020-10-27] MEDS: CHOLECALCIFEROL 1,000 UNIT TABLET PO SCH (08:45)
[2020-10-27] MEDS: ASPIRIN CHEW 81 MG TABLET PO SCH (08:46)
[2020-10-27] MEDS: FAMOTIDINE 20 MG TABLET PO SCH ×2 (08:46→21:54)
[2020-10-27] MEDS: ACETAMINOPHEN 500 MG TABLET PO PRN (13:30)
[2020-10-27] MEDS: ROSUVASTATIN 20 MG TABLET PO SCH (21:54)
[2020-10-28] MEDS: ALBUTEROL 2.5 MG/3 ML NEB RESP TX SCH ×4 (03:03→19:50)
[2020-10-28] MEDS: METOPROLOL TARTRATE 5 MG/5 ML VIAL IV SCH ×4 (03:45→22:01)
[2020-10-28] MEDS: INSULIN REGULAR 100 UNIT/ML SUBCUT SCH ×4 (05:32→23:53)
[2020-10-28 06:46] LABS: Eosinophils % 0.8 % (0.00-10.9); Hematocrit 27.9 VOL% (42.0-52.0); Hemoglobin 8.8 GM/DL (14.0-18.0); Immature Granulocytes % 0.4 %; Immature Granulocytes Absolute 0.01 #; Lymphocytes # 0.3 10*3/uL (1.4-4.0); Lymphocytes % 11.6 % (21.2-54.2); Mean Corpuscular HGB Conc 31.5 GM/DL (32-36); Mean Corpuscular Volume 95.2 FL (87-102); Mean Platelet Volume 11.6 FL (9.6-12.0); Monocytes % 8.8 % (1.7-12.7); Neutrophils % 78.4 % (38.7-73.9); Red Blood Count 2.93 MC/CUMM (3.8-5.5); Red Cell Distribution Width 20.8 % (9.3-17.3); White Blood Count 2.5 T/CUMM (4-12)
[2020-10-28 07:03] LABS: Folate 7.74 NG/ML (5.38-24.0); Vitamin B12 1316 PG/ML (211-911)
[2020-10-28 07:08] LABS: Calcium 7.8 MG/DL (8.5-10.1); Osmolality,Calculated 300.8 MOS/KG (273-304)
[2020-10-28 07:46] LABS: Platelet Count 29 T/CUMM (130-400)
[2020-10-28 07:51] LABS: Band Neutrophils 1 % (0-10); Hypochromasia 1+; Lymphocytes 8 % (20-55); Microcytosis 1+; Platelet Estimate Decreased; Segmented Neutrophils 83 % (50-85); Total Cells Counted 100
[2020-10-28 08:09] LABS: Sedimentation Rate-Westergren 30 MM/HR (0-20)
[2020-10-28 10:43] LABS: Hemoglobin A1 (Alkaline) 97.4 % (96.5-98.5); Hemoglobin A2 (Alkaline) 2.6 % (1.5-3.5)
[2020-10-28] MEDS: ASPIRIN CHEW 81 MG TABLET PO SCH (11:24)
[2020-10-28] MEDS: CHOLECALCIFEROL 1,000 UNIT TABLET PO SCH (11:25)
[2020-10-28] MEDS: POLYETHYLENE GLYCOL POWDER 17 GM PACK PO SCH ×2 (11:25→22:00)
[2020-10-28] MEDS: FAMOTIDINE 20 MG TABLET PO SCH ×2 (11:25→21:59)
[2020-10-28] MEDS: ASCORBIC ACID 500 MG TABLET PO SCH ×2 (11:25→21:59)
[2020-10-28] MEDS: ACETAMINOPHEN 500 MG TABLET PO PRN (21:59)
[2020-10-28] MEDS: ROSUVASTATIN 20 MG TABLET PO SCH (21:59)
[2020-10-29] MEDS: ALBUTEROL 2.5 MG/3 ML NEB RESP TX SCH ×4 (01:53→20:23)
[2020-10-29] MEDS: METOPROLOL TARTRATE 5 MG/5 ML VIAL IV SCH ×4 (03:39→21:59)
[2020-10-29] MEDS: INSULIN REGULAR 100 UNIT/ML SUBCUT SCH ×4 (05:58→23:38)
[2020-10-29 07:26] LABS: Eosinophils % 1.3 % (0.00-10.9); Hematocrit 27.8 VOL% (42.0-52.0); Immature Granulocytes % 0.3 %; Immature Granulocytes Absolute 0.01 #; Lymphocytes # 0.3 10*3/uL (1.4-4.0); Lymphocytes % 9.6 % (21.2-54.2); Mean Corpuscular HGB Conc 32.4 GM/DL (32-36); Mean Corpuscular Volume 93.9 FL (87-102); Mean Platelet Volume 11.4 FL (9.6-12.0); Neutrophils % 80.8 % (38.7-73.9); Red Blood Count 2.96 MC/CUMM (3.8-5.5); Red Cell Distribution Width 20.6 % (9.3-17.3); White Blood Count 3.1 T/CUMM (4-12)
[2020-10-29 07:29] LABS: Platelet Count 36 T/CUMM (130-400)
[2020-10-29 07:41] LABS: Calcium 8.1 MG/DL (8.5-10.1); Osmolality,Calculated 291.4 MOS/KG (273-304); Potassium 3.8 MMOL/L (3.5-5.1)
[2020-10-29 07:47] LABS: Hypochromasia 1+; Microcytosis 1+; Platelet Estimate Decreased
[2020-10-29] MEDS: ASCORBIC ACID 500 MG TABLET PO SCH ×2 (09:52→21:58)
[2020-10-29] MEDS: ASPIRIN CHEW 81 MG TABLET PO SCH (09:52)
[2020-10-29] MEDS: CHOLECALCIFEROL 1,000 UNIT TABLET PO SCH (09:52)
[2020-10-29] MEDS: FAMOTIDINE 20 MG TABLET PO SCH ×2 (09:54→21:58)
[2020-10-29] MEDS: POLYETHYLENE GLYCOL POWDER 17 GM PACK PO SCH ×2 (11:07→21:58)
[2020-10-29] MEDS: ONDANSETRON 4 MG/2 ML VIAL IV PRN (14:28)
[2020-10-29] MEDS: ROSUVASTATIN 20 MG TABLET PO SCH (21:58)
[2020-10-30] MEDS: ALBUTEROL 2.5 MG/3 ML NEB RESP TX SCH ×4 (00:28→19:46)
[2020-10-30] MEDS ORDERED: traZODone 50 MG TABLET PO ONE (03:13)
[2020-10-30] MEDS: METOPROLOL TARTRATE 5 MG/5 ML VIAL IV SCH ×4 (03:40→21:01)
[2020-10-30 05:16] LABS: Eosinophils % 1.1 % (0.00-10.9); Hematocrit 27.4 VOL% (42.0-52.0); Hemoglobin 8.5 GM/DL (14.0-18.0); Immature Granulocytes % 0.5 %; Immature Granulocytes Absolute 0.01 #; Lymphocytes # 0.3 10*3/uL (1.4-4.0); Lymphocytes % 15.4 % (21.2-54.2); Mean Corpuscular Volume 96.8 FL (87-102); Mean Platelet Volume 12.4 FL (9.6-12.0); Monocytes % 10.4 % (1.7-12.7); Neutrophils % 72.6 % (38.7-73.9); Red Blood Count 2.83 MC/CUMM (3.8-5.5); Red Cell Distribution Width 20.6 % (9.3-17.3); White Blood Count 1.8 T/CUMM (4-12)
[2020-10-30 05:29] LABS: Platelet Count 37 T/CUMM (130-400)
[2020-10-30 05:33] LABS: Calcium 7.9 MG/DL (8.5-10.1); Osmolality,Calculated 289.5 MOS/KG (273-304)
[2020-10-30] MEDS: INSULIN REGULAR 100 UNIT/ML SUBCUT SCH ×3 (06:30→18:37)
[2020-10-30 06:47] LABS: Platelet Estimate Decreased
[2020-10-30 06:48] LABS: Anisocytosis 2+; Macrocytosis 1+; Ovalocytes Few
[2020-10-30] MEDS: CHOLECALCIFEROL 1,000 UNIT TABLET PO SCH (10:21)
[2020-10-30] MEDS: FAMOTIDINE 20 MG TABLET PO SCH ×2 (10:21→21:05)
[2020-10-30] MEDS: ASPIRIN CHEW 81 MG TABLET PO SCH (10:21)
[2020-10-30] MEDS: ASCORBIC ACID 500 MG TABLET PO SCH ×2 (10:21→21:05)
[2020-10-30 15:53] LABS: Bacteria,Urine Occasional /HPF (Few); Bilirubin,Urine Negative (Negative); Blood, Urine Moderate mg/dL (Negative); Glucose,Urine (UA) 50 mg/dL (Negative); Ketones,Urine Negative (Negative); Mucus,Urine Occasional /LPF (Occasional); Nitrite,Urine Negative (Negative); Protein,Urine 30 MG/DL; RBC,Urine 8 /HPF (0-4); Squamous Epithelial Cell,Urine Occasional /HPF (0-10); Urine Appearance CLEAR (Clear); Urine Color Amber (Yellow); Urine Specific Gravity 1.023 (1.001-1.035)
[2020-10-30] MEDS: DESITIN 4OZ/NYSTATIN 15 GRAM MIXTURE PASTE TOP SCH ×2 (17:50→21:05)
[2020-10-30] MEDS ORDERED: PARoxetine 10 MG TABLET PO SCH (21:00)
[2020-10-30] MEDS: ROSUVASTATIN 20 MG TABLET PO SCH (21:04)
[2020-10-30] MEDS: TAMSULOSIN 0.4 MG CAPSULE PO SCH (21:05)
[2020-10-30] MEDS ORDERED: LORazepam 1 MG TABLET PO ONE (21:44)
[2020-10-31] MEDS: ALBUTEROL 2.5 MG/3 ML NEB RESP TX SCH ×4 (01:06→19:21)
[2020-10-31] MEDS: INSULIN REGULAR 100 UNIT/ML SUBCUT SCH ×4 (01:11→17:52)
[2020-10-31] MEDS: METOPROLOL TARTRATE 5 MG/5 ML VIAL IV SCH ×2 (04:21→08:56)
[2020-10-31 06:15] LABS: Eosinophils % 1.2 % (0.00-10.9); Hemoglobin 8.7 GM/DL (14.0-18.0); Immature Granulocytes % 0.6 %; Immature Granulocytes Absolute 0.01 #; Lymphocytes # 0.2 10*3/uL (1.4-4.0); Lymphocytes % 14.3 % (21.2-54.2); Mean Corpuscular HGB Conc 31.1 GM/DL (32-36); Mean Corpuscular Volume 96.2 FL (87-102); Mean Platelet Volume 12.1 FL (9.6-12.0); Monocytes % 10.6 % (1.7-12.7); Neutrophils % 73.3 % (38.7-73.9); Red Blood Count 2.91 MC/CUMM (3.8-5.5); Red Cell Distribution Width 20.5 % (9.3-17.3); White Blood Count 1.6 T/CUMM (4-12)
[2020-10-31 06:19] LABS: Platelet Count 36 T/CUMM (130-400)
[2020-10-31 06:31] LABS: Calcium 7.9 MG/DL (8.5-10.1); Osmolality,Calculated 286.7 MOS/KG (273-304); Potassium 3.9 MMOL/L (3.5-5.1)
[2020-10-31 06:35] LABS: Band Neutrophils 1 % (0-10); Eosinophils 3 % (0-10); Hypochromasia 1+; Lymphocytes 7 % (20-55); Microcytosis 1+; Platelet Estimate Decreased; Segmented Neutrophils 79 % (50-85); Total Cells Counted 100
[2020-10-31] MEDS: CHOLECALCIFEROL 1,000 UNIT TABLET PO SCH (08:58)
[2020-10-31] MEDS: FAMOTIDINE 20 MG TABLET PO SCH ×2 (08:58→20:23)
[2020-10-31] MEDS: DESITIN 4OZ/NYSTATIN 15 GRAM MIXTURE PASTE TOP SCH ×2 (08:58→20:23)
[2020-10-31] MEDS: FINASTERIDE 5 MG TABLET PO SCH (08:58)
[2020-10-31] MEDS: ASPIRIN CHEW 81 MG TABLET PO SCH (08:58)
[2020-10-31] MEDS: ASCORBIC ACID 500 MG TABLET PO SCH ×2 (08:58→20:23)
[2020-10-31] MEDS: cloNIDine 0.1 MG/24 HR PATCH TRANSDERM SCH (08:59)
[2020-10-31] MEDS ORDERED: PROPRANOLOL 10 MG TABLET PO SCH (15:00)
[2020-10-31] MEDS: carvediloL 3.125 MG TABLET PO SCH (17:41)
[2020-10-31] MEDS: MIRTAZAPINE 15 MG TABLET PO SCH (20:22)
[2020-10-31] MEDS: TAMSULOSIN 0.4 MG CAPSULE PO SCH (20:23)
[2020-10-31] MEDS: ROSUVASTATIN 20 MG TABLET PO SCH (21:36)
[2020-11-01] MEDS: ALBUTEROL 2.5 MG/3 ML NEB RESP TX SCH ×4 (00:48→19:17)
[2020-11-01] MEDS: INSULIN REGULAR 100 UNIT/ML SUBCUT SCH ×4 (03:58→17:33)
[2020-11-01] MEDS: ASCORBIC ACID 500 MG TABLET PO SCH ×2 (09:22→21:58)
[2020-11-01] MEDS: carvediloL 3.125 MG TABLET PO SCH ×2 (09:22→17:33)
[2020-11-01] MEDS: DESITIN 4OZ/NYSTATIN 15 GRAM MIXTURE PASTE TOP SCH ×2 (09:22→21:57)
[2020-11-01] MEDS: FINASTERIDE 5 MG TABLET PO SCH (09:22)
[2020-11-01] MEDS: ASPIRIN CHEW 81 MG TABLET PO SCH (09:22)
[2020-11-01] MEDS: CHOLECALCIFEROL 1,000 UNIT TABLET PO SCH (09:22)
[2020-11-01] MEDS: FAMOTIDINE 20 MG TABLET PO SCH ×2 (09:22→21:58)
[2020-11-01 14:04] LABS: Eosinophils % 2.5 % (0.00-10.9); Hematocrit 29.4 VOL% (42.0-52.0); Hemoglobin 8.5 GM/DL (14.0-18.0); Immature Granulocytes % 5.8 %; Immature Granulocytes Absolute 0.07 #; Lymphocytes # 0.2 10*3/uL (1.4-4.0); Lymphocytes % 19.8 % (21.2-54.2); Mean Corpuscular HGB Conc 28.9 GM/DL (32-36); Mean Corpuscular Volume 103.9 FL (87-102); Mean Platelet Volume 12.3 FL (9.6-12.0); Monocytes % 8.3 % (1.7-12.7); Neutrophils % 63.6 % (38.7-73.9); Red Blood Count 2.83 MC/CUMM (3.8-5.5); Red Cell Distribution Width 20.2 % (9.3-17.3); White Blood Count 1.2 T/CUMM (4-12)
[2020-11-01 14:06] LABS: Platelet Count 36 T/CUMM (130-400)
[2020-11-01 14:27] LABS: Eosinophils 3 % (0-10); Lymphocytes 15 % (20-55); Segmented Neutrophils 78 % (50-85); Total Cells Counted 100
[2020-11-01 14:28] LABS: Anisocytosis 1+; Elliptocytes Few; Hypochromasia 1+; Platelet Estimate Decreased; Polychromasia 1+
[2020-11-01] MEDS: MIRTAZAPINE 15 MG TABLET PO SCH (21:57)
[2020-11-01] MEDS: TAMSULOSIN 0.4 MG CAPSULE PO SCH (21:58)
[2020-11-01] MEDS: ROSUVASTATIN 20 MG TABLET PO SCH (21:58)
[2020-11-02] MEDS: ALBUTEROL 2.5 MG/3 ML NEB RESP TX SCH ×4 (00:57→19:36)
[2020-11-02] MEDS: INSULIN REGULAR 100 UNIT/ML SUBCUT SCH ×4 (02:50→18:08)
[2020-11-02] MEDS: ACETAMINOPHEN 500 MG TABLET PO PRN (02:51)
[2020-11-02 07:19] LABS: Eosinophils % 3.3 % (0.00-10.9); Hematocrit 23.1 VOL% (42.0-52.0); Hemoglobin 7.5 GM/DL (14.0-18.0); Immature Granulocytes % 0.8 %; Immature Granulocytes Absolute 0.01 #; Lymphocytes # 0.3 10*3/uL (1.4-4.0); Lymphocytes % 23.3 % (21.2-54.2); Mean Corpuscular HGB Conc 32.5 GM/DL (32-36); Mean Corpuscular Volume 94.3 FL (87-102); Mean Platelet Volume 11.4 FL (9.6-12.0); Monocytes % 9.2 % (1.7-12.7); Neutrophils % 63.4 % (38.7-73.9); Red Blood Count 2.45 MC/CUMM (3.8-5.5); White Blood Count 1.2 T/CUMM (4-12)
[2020-11-02 07:27] LABS: Platelet Count 33 T/CUMM (130-400)
[2020-11-02 07:33] LABS: Calcium 7.4 MG/DL (8.5-10.1); Osmolality,Calculated 285.7 MOS/KG (273-304); Potassium 3.4 MMOL/L (3.5-5.1)
[2020-11-02] MEDS ORDERED: SODIUM CHLORIDE 0.9% 1,000 ML IV PRN (07:33)
[2020-11-02] MEDS: carvediloL 3.125 MG TABLET PO SCH ×2 (09:16→18:06)
[2020-11-02] MEDS: ASCORBIC ACID 500 MG TABLET PO SCH ×2 (09:16→21:22)
[2020-11-02] MEDS: FINASTERIDE 5 MG TABLET PO SCH (09:16)
[2020-11-02] MEDS: FAMOTIDINE 20 MG TABLET PO SCH ×2 (09:16→21:22)
[2020-11-02] MEDS: CHOLECALCIFEROL 1,000 UNIT TABLET PO SCH (09:16)
[2020-11-02] MEDS: ASPIRIN CHEW 81 MG TABLET PO SCH (09:16)
[2020-11-02] MEDS: DESITIN 4OZ/NYSTATIN 15 GRAM MIXTURE PASTE TOP SCH ×2 (09:17→21:23)
[2020-11-02 09:35] LABS: Eosinophils 1 % (0-10); Lymphocytes 23 % (20-55); Platelet Estimate Decreased; Segmented Neutrophils 68 % (50-85); Total Cells Counted 100
[2020-11-02 09:36] LABS: Anisocytosis 2+; Hypochromasia 1+; Ovalocytes Few
[2020-11-02] MEDS: TAMSULOSIN 0.4 MG CAPSULE PO SCH (21:21)
[2020-11-02] MEDS: ROSUVASTATIN 20 MG TABLET PO SCH (21:22)
[2020-11-02] MEDS: MIRTAZAPINE 15 MG TABLET PO SCH (21:22)
[2020-11-02] MEDS: LORazepam 2 MG/1 ML VIAL IV PRN (23:13)
[2020-11-03] MEDS: ALBUTEROL 2.5 MG/3 ML NEB RESP TX SCH ×4 (01:05→19:46)
[2020-11-03] MEDS: INSULIN REGULAR 100 UNIT/ML SUBCUT SCH ×4 (01:49→17:15)
[2020-11-03 05:41] LABS: Eosinophils % 3.7 % (0.00-10.9); Hemoglobin 6.9 GM/DL (14.0-18.0); Lymphocytes # 0.3 10*3/uL (1.4-4.0); Mean Corpuscular HGB Conc 31.4 GM/DL (32-36); Mean Corpuscular Volume 96.9 FL (87-102); Neutrophils % 46.3 % (38.7-73.9); Red Blood Count 2.27 MC/CUMM (3.8-5.5); Red Cell Distribution Width 20.1 % (9.3-17.3)
[2020-11-03 05:47] LABS: Platelet Count 34 T/CUMM (130-400); White Blood Count 0.8 T/CUMM (4-12)
[2020-11-03 05:56] LABS: Calcium 7.5 MG/DL (8.5-10.1); Osmolality,Calculated 284.4 MOS/KG (273-304); Potassium 3.8 MMOL/L (3.5-5.1)
[2020-11-03 06:04] LABS: Hypochromasia 1+; Microcytosis 1+; Ovalocytes Slight
[2020-11-03 06:05] LABS: Platelet Estimate Decreased
[2020-11-03] MEDS ORDERED: SODIUM CHLORIDE 0.9% 1,000 ML IV PRN (06:32)
[2020-11-03] MEDS: carvediloL 3.125 MG TABLET PO SCH ×2 (08:54→17:15)
[2020-11-03] MEDS: ASCORBIC ACID 500 MG TABLET PO SCH ×2 (08:54→20:57)
[2020-11-03] MEDS: ASPIRIN CHEW 81 MG TABLET PO SCH (08:54)
[2020-11-03] MEDS: FAMOTIDINE 20 MG TABLET PO SCH ×2 (08:54→21:00)
[2020-11-03] MEDS: FINASTERIDE 5 MG TABLET PO SCH (08:54)
[2020-11-03] MEDS: CHOLECALCIFEROL 1,000 UNIT TABLET PO SCH (08:54)
[2020-11-03] MEDS: DESITIN 4OZ/NYSTATIN 15 GRAM MIXTURE PASTE TOP SCH ×2 (08:55→20:59)
[2020-11-03] MEDS: LORazepam 2 MG/1 ML VIAL IV PRN (19:37)
[2020-11-03] MEDS: ROSUVASTATIN 20 MG TABLET PO SCH (20:57)
[2020-11-03] MEDS: MIRTAZAPINE 15 MG TABLET PO SCH (20:57)
[2020-11-03] MEDS: TAMSULOSIN 0.4 MG CAPSULE PO SCH (20:58)
[2020-11-04] MEDS: ALBUTEROL 2.5 MG/3 ML NEB RESP TX SCH ×4 (00:46→20:02)
[2020-11-04] MEDS: INSULIN REGULAR 100 UNIT/ML SUBCUT SCH ×5 (01:09→23:08)
[2020-11-04 06:34] LABS: Eosinophils % 3.4 % (0.00-10.9); Hematocrit 25.7 VOL% (42.0-52.0); Immature Granulocytes % 1.1 %; Immature Granulocytes Absolute 0.01 #; Lymphocytes # 0.2 10*3/uL (1.4-4.0); Mean Corpuscular HGB Conc 31.1 GM/DL (32-36); Mean Corpuscular Volume 96.3 FL (87-102); Mean Platelet Volume 10.4 FL (9.6-12.0); Neutrophils % 59.5 % (38.7-73.9); Platelet Count 43 T/CUMM (130-400); Red Blood Count 2.67 MC/CUMM (3.8-5.5); Red Cell Distribution Width 20.6 % (9.3-17.3)
[2020-11-04 06:42] LABS: White Blood Count 0.9 T/CUMM (4-12)
[2020-11-04 06:51] LABS: Bilirubin,Total 2.1 MG/DL (0.2-1.0); Calcium 7.4 MG/DL (8.5-10.1); Osmolality,Calculated 287.4 MOS/KG (273-304); Potassium 3.5 MMOL/L (3.5-5.1); Total Protein 5.3 G/DL (6.4-8.2)
[2020-11-04 06:55] LABS: Bilirubin,Direct 1.4 MG/DL (0.0-0.20); Bilirubin,Indirect 1.7 MG/DL (0.0-1.0); Bilirubin,Total 3.1 MG/DL (0.2-1.0); Calcium 7.4 MG/DL (8.5-10.1); Osmolality,Calculated 286.5 MOS/KG (273-304); Potassium 3.5 MMOL/L (3.5-5.1); Total Protein 5.2 G/DL (6.4-8.2)
[2020-11-04 06:57] LABS: Band Neutrophils 1 % (0-10); Eosinophils 1 % (0-10); Lymphocytes 18 % (20-55); Segmented Neutrophils 76 % (50-85); Total Cells Counted 100
[2020-11-04 06:58] LABS: Hypochromasia 1+; Microcytosis 1+; Platelet Estimate Decreased
[2020-11-04] MEDS: ASPIRIN CHEW 81 MG TABLET PO SCH (09:54)
[2020-11-04] MEDS: carvediloL 3.125 MG TABLET PO SCH ×2 (09:54→18:05)
[2020-11-04] MEDS: POLYETHYLENE GLYCOL POWDER 17 GM PACK PO SCH ×2 (09:54→20:56)
[2020-11-04] MEDS: CHOLECALCIFEROL 1,000 UNIT TABLET PO SCH (09:55)
[2020-11-04] MEDS: ASCORBIC ACID 500 MG TABLET PO SCH ×2 (09:55→20:56)
[2020-11-04] MEDS: FINASTERIDE 5 MG TABLET PO SCH (09:55)
[2020-11-04] MEDS: FAMOTIDINE 20 MG TABLET PO SCH ×2 (09:55→20:56)
[2020-11-04] MEDS: DESITIN 4OZ/NYSTATIN 15 GRAM MIXTURE PASTE TOP SCH ×2 (09:55→20:57)
[2020-11-04] MEDS: ACETAMINOPHEN 500 MG TABLET PO PRN (18:04)
[2020-11-04] MEDS: TAMSULOSIN 0.4 MG CAPSULE PO SCH (20:56)
[2020-11-04] MEDS: ROSUVASTATIN 20 MG TABLET PO SCH (20:56)
[2020-11-04] MEDS: LORazepam 2 MG/1 ML VIAL IV PRN (21:11)
[2020-11-05] MEDS: ALBUTEROL 2.5 MG/3 ML NEB RESP TX SCH ×4 (00:26→19:38)
[2020-11-05] MEDS: ACETAMINOPHEN 500 MG TABLET PO PRN ×2 (00:43→20:54)
[2020-11-05] MEDS: LORazepam 2 MG/1 ML VIAL IV PRN ×2 (01:09→06:04)
[2020-11-05 04:19] LABS: Eosinophils % 2.1 % (0.00-10.9); Hemoglobin 7.7 GM/DL (14.0-18.0); Immature Granulocytes % 0.7 %; Immature Granulocytes Absolute 0.01 #; Lymphocytes # 0.2 10*3/uL (1.4-4.0); Lymphocytes % 15.3 % (21.2-54.2); Mean Corpuscular HGB Conc 32.1 GM/DL (32-36); Mean Corpuscular Volume 94.9 FL (87-102); Mean Platelet Volume 11.4 FL (9.6-12.0); Monocytes % 11.1 % (1.7-12.7); Neutrophils % 70.8 % (38.7-73.9); Red Blood Count 2.53 MC/CUMM (3.8-5.5); Red Cell Distribution Width 20.5 % (9.3-17.3)
[2020-11-05 04:29] LABS: Calcium 7.3 MG/DL (8.5-10.1); Osmolality,Calculated 287.3 MOS/KG (273-304); Potassium 3.7 MMOL/L (3.5-5.1)
[2020-11-05 04:30] LABS: Platelet Count 45 T/CUMM (130-400); White Blood Count 1.4 T/CUMM (4-12)
[2020-11-05 04:53] LABS: Hypochromasia 1+; Microcytosis 1+; Platelet Estimate Decreased
[2020-11-05] MEDS: INSULIN REGULAR 100 UNIT/ML SUBCUT SCH ×3 (06:29→18:38)
[2020-11-05] MEDS: POLYETHYLENE GLYCOL POWDER 17 GM PACK PO SCH ×2 (08:41→20:54)
[2020-11-05] MEDS: carvediloL 3.125 MG TABLET PO SCH ×2 (08:41→17:20)
[2020-11-05] MEDS: FINASTERIDE 5 MG TABLET PO SCH (08:41)
[2020-11-05] MEDS: ASPIRIN CHEW 81 MG TABLET PO SCH (08:41)
[2020-11-05] MEDS: FAMOTIDINE 20 MG TABLET PO SCH ×2 (08:41→20:54)
[2020-11-05] MEDS: CHOLECALCIFEROL 1,000 UNIT TABLET PO SCH (08:42)
[2020-11-05] MEDS: ASCORBIC ACID 500 MG TABLET PO SCH ×2 (08:42→20:54)
[2020-11-05] MEDS: DESITIN 4OZ/NYSTATIN 15 GRAM MIXTURE PASTE TOP SCH ×2 (08:42→20:55)
[2020-11-05] MEDS: ROSUVASTATIN 20 MG TABLET PO SCH (20:54)
[2020-11-05] MEDS: TAMSULOSIN 0.4 MG CAPSULE PO SCH (20:55)
[2020-11-06] MEDS: ALBUTEROL 2.5 MG/3 ML NEB RESP TX SCH ×4 (00:14→19:26)
[2020-11-06] MEDS: INSULIN REGULAR 100 UNIT/ML SUBCUT SCH ×4 (00:49→17:32)
[2020-11-06] MEDS: LORazepam 2 MG/1 ML VIAL IV PRN (02:08)
[2020-11-06 05:26] LABS: Eosinophils % 0.7 % (0.00-10.9); Hematocrit 32.2 VOL% (42.0-52.0); Hemoglobin 10.4 GM/DL (14.0-18.0); Immature Granulocytes % 0.4 %; Immature Granulocytes Absolute 0.01 #; Lymphocytes # 0.3 10*3/uL (1.4-4.0); Lymphocytes % 10.1 % (21.2-54.2); Mean Corpuscular HGB Conc 32.3 GM/DL (32-36); Mean Corpuscular Volume 93.9 FL (87-102); Monocytes % 10.1 % (1.7-12.7); Neutrophils % 78.7 % (38.7-73.9); Platelet Count 59 T/CUMM (130-400); Red Blood Count 3.43 MC/CUMM (3.8-5.5); Red Cell Distribution Width 20.4 % (9.3-17.3); White Blood Count 2.8 T/CUMM (4-12)
[2020-11-06 05:39] LABS: Calcium 7.5 MG/DL (8.5-10.1); Osmolality,Calculated 284.7 MOS/KG (273-304); Potassium 4.1 MMOL/L (3.5-5.1)
[2020-11-06 06:03] LABS: Band Neutrophils 6 % (0-10); Hypochromasia 1+; Lymphocytes 6 % (20-55); Microcytosis 1+; Segmented Neutrophils 83 % (50-85); Total Cells Counted 100
[2020-11-06 06:04] LABS: Ovalocytes Slight; Platelet Estimate Decreased
[2020-11-06] MEDS: carvediloL 3.125 MG TABLET PO SCH ×2 (10:02→16:47)
[2020-11-06] MEDS: ASPIRIN CHEW 81 MG TABLET PO SCH (10:11)
[2020-11-06] MEDS: FAMOTIDINE 20 MG TABLET PO SCH ×2 (10:12→21:29)
[2020-11-06] MEDS: CHOLECALCIFEROL 1,000 UNIT TABLET PO SCH (10:12)
[2020-11-06] MEDS: POLYETHYLENE GLYCOL POWDER 17 GM PACK PO SCH ×2 (10:12→21:29)
[2020-11-06] MEDS: FINASTERIDE 5 MG TABLET PO SCH (10:12)
[2020-11-06] MEDS: ASCORBIC ACID 500 MG TABLET PO SCH ×2 (10:12→21:29)
[2020-11-06] MEDS: DESITIN 4OZ/NYSTATIN 15 GRAM MIXTURE PASTE TOP SCH ×2 (10:13→21:30)
[2020-11-06] MEDS ORDERED: TUBERCULIN SKIN TEST 0.1 ML SYRINGE INTRADERM ONE (14:09)
[2020-11-06] MEDS: TAMSULOSIN 0.4 MG CAPSULE PO SCH (21:29)
[2020-11-06] MEDS: ROSUVASTATIN 20 MG TABLET PO SCH (21:29)
[2020-11-07] MEDS: ALBUTEROL 2.5 MG/3 ML NEB RESP TX SCH ×4 (00:01→19:45)
[2020-11-07] MEDS: INSULIN REGULAR 100 UNIT/ML SUBCUT SCH ×4 (00:43→17:14)
[2020-11-07 06:52] LABS: Eosinophils % 0.6 % (0.00-10.9); Hematocrit 31.7 VOL% (42.0-52.0); Hemoglobin 9.9 GM/DL (14.0-18.0); Immature Granulocytes % 1.2 %; Immature Granulocytes Absolute 0.02 #; Lymphocytes # 0.2 10*3/uL (1.4-4.0); Lymphocytes % 10.8 % (21.2-54.2); Mean Corpuscular HGB Conc 31.2 GM/DL (32-36); Mean Corpuscular Volume 95.5 FL (87-102); Mean Platelet Volume 11.3 FL (9.6-12.0); Monocytes % 10.2 % (1.7-12.7); Neutrophils % 77.2 % (38.7-73.9); Platelet Count 47 T/CUMM (130-400); Red Blood Count 3.32 MC/CUMM (3.8-5.5); Red Cell Distribution Width 20.6 % (9.3-17.3); White Blood Count 1.7 T/CUMM (4-12)
[2020-11-07 07:05] LABS: Calcium 7.6 MG/DL (8.5-10.1); Osmolality,Calculated 285.7 MOS/KG (273-304)
[2020-11-07 07:22] LABS: Anisocytosis 1+; Band Neutrophils 17 % (0-10); Burr Cells Few; Lymphocytes 7 % (20-55); Platelet Estimate Decreased; Segmented Neutrophils 63 % (50-85); Total Cells Counted 100
[2020-11-07 07:23] LABS: Macrocytosis Slight
[2020-11-07] MEDS: DESITIN 4OZ/NYSTATIN 15 GRAM MIXTURE PASTE TOP SCH ×2 (10:10→21:28)
[2020-11-07] MEDS: ASCORBIC ACID 500 MG TABLET PO SCH ×2 (10:26→21:27)
[2020-11-07] MEDS: FINASTERIDE 5 MG TABLET PO SCH (10:26)
[2020-11-07] MEDS: POLYETHYLENE GLYCOL POWDER 17 GM PACK PO SCH ×2 (10:26→21:26)
[2020-11-07] MEDS: CHOLECALCIFEROL 1,000 UNIT TABLET PO SCH (10:26)
[2020-11-07] MEDS: FAMOTIDINE 20 MG TABLET PO SCH ×2 (10:26→21:28)
[2020-11-07] MEDS: ASPIRIN CHEW 81 MG TABLET PO SCH (10:26)
[2020-11-07] MEDS: carvediloL 3.125 MG TABLET PO SCH ×2 (10:26→16:47)
[2020-11-07] MEDS: cloNIDine 0.1 MG/24 HR PATCH TRANSDERM SCH (13:22)
[2020-11-07] MEDS: TAMSULOSIN 0.4 MG CAPSULE PO SCH (21:27)
[2020-11-07] MEDS: ROSUVASTATIN 20 MG TABLET PO SCH (21:28)
[2020-11-08] MEDS: ALBUTEROL 2.5 MG/3 ML NEB RESP TX SCH ×4 (00:50→18:59)
[2020-11-08] MEDS: INSULIN REGULAR 100 UNIT/ML SUBCUT SCH ×4 (01:52→17:40)
[2020-11-08] MEDS: ASPIRIN CHEW 81 MG TABLET PO SCH ×2 (09:59→12:28)
[2020-11-08] MEDS: carvediloL 3.125 MG TABLET PO SCH ×3 (09:59→16:57)
[2020-11-08] MEDS: CHOLECALCIFEROL 1,000 UNIT TABLET PO SCH ×2 (10:00→12:28)
[2020-11-08] MEDS: POLYETHYLENE GLYCOL POWDER 17 GM PACK PO SCH ×2 (10:00→21:19)
[2020-11-08] MEDS: FINASTERIDE 5 MG TABLET PO SCH ×2 (10:00→12:28)
[2020-11-08] MEDS: FAMOTIDINE 20 MG TABLET PO SCH ×3 (10:00→21:13)
[2020-11-08] MEDS: DESITIN 4OZ/NYSTATIN 15 GRAM MIXTURE PASTE TOP SCH ×2 (10:00→21:11)
[2020-11-08] MEDS: ASCORBIC ACID 500 MG TABLET PO SCH ×3 (10:00→21:13)
[2020-11-08] MEDS: ACETAMINOPHEN 500 MG TABLET PO PRN ×2 (12:28→21:11)
[2020-11-08] MEDS: TAMSULOSIN 0.4 MG CAPSULE PO SCH (21:13)
[2020-11-08] MEDS: ROSUVASTATIN 20 MG TABLET PO SCH (21:13)
[2020-11-09] MEDS: INSULIN REGULAR 100 UNIT/ML SUBCUT SCH ×4 (00:31→17:28)
[2020-11-09] MEDS: ALBUTEROL 2.5 MG/3 ML NEB RESP TX SCH ×4 (00:39→19:20)
[2020-11-09] MEDS: POLYETHYLENE GLYCOL POWDER 17 GM PACK PO SCH ×2 (09:00→21:38)
[2020-11-09] MEDS: carvediloL 3.125 MG TABLET PO SCH ×2 (09:02→17:27)
[2020-11-09] MEDS: ASPIRIN CHEW 81 MG TABLET PO SCH (09:02)
[2020-11-09] MEDS: FAMOTIDINE 20 MG TABLET PO SCH ×2 (09:02→21:37)
[2020-11-09] MEDS: DESITIN 4OZ/NYSTATIN 15 GRAM MIXTURE PASTE TOP SCH ×2 (09:02→21:38)
[2020-11-09] MEDS: FINASTERIDE 5 MG TABLET PO SCH (09:02)
[2020-11-09] MEDS: CHOLECALCIFEROL 1,000 UNIT TABLET PO SCH (09:03)
[2020-11-09] MEDS: ASCORBIC ACID 500 MG TABLET PO SCH ×2 (09:03→21:38)
[2020-11-09] MEDS: ACETAMINOPHEN 500 MG TABLET PO PRN ×2 (09:06→21:37)
[2020-11-09] MEDS: ROSUVASTATIN 20 MG TABLET PO SCH (21:37)
[2020-11-09] MEDS: TAMSULOSIN 0.4 MG CAPSULE PO SCH (21:37)
[2020-11-10] MEDS: INSULIN REGULAR 100 UNIT/ML SUBCUT SCH ×4 (00:36→18:16)
[2020-11-10] MEDS: ALBUTEROL 2.5 MG/3 ML NEB RESP TX SCH ×4 (00:59→19:24)
[2020-11-10] MEDS: ACETAMINOPHEN 500 MG TABLET PO PRN (04:41)
[2020-11-10 05:54] LABS: Hematocrit 26.5 VOL% (42.0-52.0); Hemoglobin 8.4 GM/DL (14.0-18.0); Lymphocytes # 0.2 10*3/uL (1.4-4.0); Lymphocytes % 16.4 % (21.2-54.2); Mean Corpuscular HGB Conc 31.7 GM/DL (32-36); Mean Corpuscular Volume 93.6 FL (87-102); Mean Platelet Volume 10.4 FL (9.6-12.0); Monocytes % 14.8 % (1.7-12.7); Neutrophils % 68.8 % (38.7-73.9); Red Blood Count 2.83 MC/CUMM (3.8-5.5); Red Cell Distribution Width 19.4 % (9.3-17.3); White Blood Count 1.2 T/CUMM (4-12)
[2020-11-10 05:55] LABS: Platelet Count 38 T/CUMM (130-400)
[2020-11-10 06:16] LABS: Albumin 1.6 G/DL (3.4-5.0); Bilirubin,Total 2.5 MG/DL (0.2-1.0); Calcium 7.3 MG/DL (8.5-10.1); Potassium 3.5 MMOL/L (3.5-5.1)
[2020-11-10 06:20] LABS: Band Neutrophils 5 % (0-10); Eosinophils 1 % (0-10); Hypochromasia 1+; Lymphocytes 21 % (20-55); Segmented Neutrophils 63 % (50-85); Total Cells Counted 100
[2020-11-10 06:21] LABS: Microcytosis 1+; Platelet Estimate Decreased
[2020-11-10] MEDS: FAMOTIDINE 20 MG TABLET PO SCH ×2 (10:14→21:58)
[2020-11-10] MEDS: carvediloL 3.125 MG TABLET PO SCH ×2 (10:14→17:29)
[2020-11-10] MEDS: FINASTERIDE 5 MG TABLET PO SCH (10:14)
[2020-11-10] MEDS: ASPIRIN CHEW 81 MG TABLET PO SCH (10:14)
[2020-11-10] MEDS: CHOLECALCIFEROL 1,000 UNIT TABLET PO SCH (10:15)
[2020-11-10] MEDS: ASCORBIC ACID 500 MG TABLET PO SCH ×2 (10:15→21:58)
[2020-11-10] MEDS: DESITIN 4OZ/NYSTATIN 15 GRAM MIXTURE PASTE TOP SCH ×2 (10:15→21:58)
[2020-11-10] MEDS: POLYETHYLENE GLYCOL POWDER 17 GM PACK PO SCH ×2 (10:39→21:58)
[2020-11-10] MEDS: ROSUVASTATIN 20 MG TABLET PO SCH (21:57)
[2020-11-10] MEDS: TAMSULOSIN 0.4 MG CAPSULE PO SCH (21:57)
[2020-11-10 22:35] VITALS: BP 128/58
== END 2020-11-10 22:27 | disposition swing bed (61) | DRG 870 ==
LOC: N.ED 08:11 → N.EDINP 10:44 → SUATTDRO 10:44 → N.CC 11:42 → N.3E 10-27 18:21
PROVIDERS: ADMIT Hospitalist; ATTEND Emergency Medicine
PROC: EGDWEBL (ICD-10-PCS; 2020-10-13 17:20)